=== PATIENT | female | born 1985 | race Caucasian/White ===

== ENCOUNTER → 2020-04-16 15:15 | Outpatient (CLI) | payer OTHER, SELFPAY ==
[2020-04-16 14:32] VITALS: BMI 28.8
[2020-04-16 16:48] LABS: Absolute Lymphocyte Count 2.06 X10^3/uL (0.83-4.51); Absolute Neutrophil Count 5.4 X10^3/uL (2.0-7.7); Basophil# 0.03 X10^3/uL; Basophil% 0.4 % (0-1); Eosinophil# 0.12 X10^3/uL; Eosinophils% 1.5 % (0-5); Lymphocyte # 2.06 X10^3/ul (4.0); Lymphocyte % 24.9 % (19-41); Mean Corp Hgb Conc 32.5 g/dL (32-36); Mean Corpuscular Hgb 29.1 pg (27.0-32.0); Mean Corpuscular Volume 89.7 fL (81-99); Mean Platelet Vol. 11.5 fl (6.2-12.0); Monocyte% 7.3 % (0-10); NRBC Flagged by Analyzer 0 % (0-5); Neutrophil # 5.43 X10^3/uL (2.7-7.7); Neutrophil % 65.5 % (47-70); Platelet Count 241 K/mm3 (150-450); RBC Distribution Width CV 11.8 % (11.6-14.6); RBC Distribution Width SD 38.5 fl (35.1-43.9); Red Blood Count 4.46 M/mm3 (4.2-5.4); White Blood Count 8.3 K/mm3 (4.4-11.0)
[2020-04-16 17:16] LABS: ALB/GLOB Ratio 1.1 RATIO (0.9-2.4); AST(SGOT) 15 U/L (15-37); Alanine Aminotransfer ALT/SGPT 22 U/L (13-56); Albumin, Serum 3.9 g/dL (3.2-5.0); Alkaline Phosphatase 57 U/L (45-117); Anion Gap 4 (5-15); BUN 7 mg/dL (7-18); BUN/Creat Ratio 9.1 RATIO (10-20); Calcium,Total 8.9 mg/dL (8.5-10.1); Chloride 107 mmol/L (98-107); Creatinine, Serum 0.77 mg/dL (0.55-1.02); EST Glomerular Filtration Rate 92 mL/min (>60); Est Glom Filt Rate - Afr Amer 112 mL/min (>60); Globulin 3.7 g/dL (2.2-4.2); Glucose 84 mg/dL (74-106); Potassium 3.6 mmol/L (3.5-5.1); Protein, Total 7.6 g/dL (6.4-8.2); Sodium Level 139 mmol/L (136-145); T4 Free Direct 0.98 ng/dL (0.76-1.46); Thyroid Stim Hormone (TSH) 1.29 uIU/mL (0.358-3.74)
== END ==
PROVIDERS: PCP Internal Medicine; Referring Provider Internal Medicine; Visit Provider Internal Medicine
DX: F32.9 Major depressive disorder, single episode, unspecified (principal); F41.9 Anxiety disorder, unspecified
CPT/HCPCS: 36415; 80053; 84439; 84443; 85025

== ENCOUNTER 2020-07-24 08:00 | Outpatient (RCR) | payer MEDICARE, SELFPAY ==
[2020-05-28 11:05] VITALS: BMI 28.9
== END 2020-08-28 23:59 ==
LOC: IMMUN 08:00
PROVIDERS: PCP Internal Medicine; Referring Provider Family Medicine; Visit Provider Family Medicine
DX: Z23 Encounter for immunization (principal)
CPT/HCPCS: 0001A; 0002A; 91300

== ENCOUNTER 2021-04-21 11:49 | Outpatient (CLI) | payer BC, SELFPAY ==
[2021-04-21 14:54] LABS: Absolute Lymphocyte Count 2.29 X10^3/uL (0.83-4.51); Basophil# 0.05 X10^3/uL; Basophil% 0.7 % (0-1); Eosinophil# 0.11 X10^3/uL; Eosinophils% 1.5 % (0-5); Hematocrit 39.7 % (37-47); Hemoglobin 12.8 g/dL (12.0-15.0); Lymphocyte # 2.29 X10^3/ul (0.83-4.51); Lymphocyte % 32.3 % (19-41); Mean Corp Hgb Conc 32.2 g/dL (32-36); Mean Corpuscular Hgb 28.6 pg (27.0-32.0); Mean Corpuscular Volume 88.8 fL (81-99); Mean Platelet Vol. 11.8 fl (6.2-12.0); Monocyte# 0.58 X10^3/uL; Monocyte% 8.2 % (0-10); NRBC Flagged by Analyzer 0 % (0-5); Neutrophil # 4.04 X10^3/uL (2.7-7.7); Neutrophil % 56.9 % (47-70); Platelet Count 239 K/mm3 (150-450); RBC Distribution Width CV 12.1 % (11.6-14.6); RBC Distribution Width SD 39.3 fl (35.1-43.9); Red Blood Count 4.47 M/mm3 (4.2-5.4); White Blood Count 7.1 K/mm3 (4.4-11.0)
[2021-04-21 15:22] LABS: Vitamin D,25 Hydroxy 18.3 ng/mL
[2021-04-21 15:33] LABS: AST(SGOT) 20 U/L (15-37); Alanine Aminotransfer ALT/SGPT 25 U/L (13-56); Albumin, Serum 3.7 g/dL (3.2-5.0); Alkaline Phosphatase 69 U/L (45-117); Anion Gap 5 (5-15); BUN 9 mg/dL (7-18); BUN/Creat Ratio 11.9 RATIO (10-20); Calcium,Total 8.7 mg/dL (8.5-10.1); Chloride 105 mmol/L (98-107); Creatinine, Serum 0.76 mg/dL (0.55-1.02); EST Glomerular Filtration Rate 93 mL/min (>60); Est Glom Filt Rate - Afr Amer 113 mL/min (>60); Globulin 3.7 g/dL (2.2-4.2); Glucose 92 mg/dL (74-106); Potassium 3.9 mmol/L (3.5-5.1); Protein, Total 7.4 g/dL (6.4-8.2); Sodium Level 137 mmol/L (136-145); Thyroid Stim Hormone (TSH) 1.41 uIU/mL (0.358-3.74)
== END 2021-04-21 23:59 | disposition home or self-care (01) ==
LOC: BIMLAB 11:50
PROVIDERS: PCP Internal Medicine; Referring Provider Physician Assistant; Visit Provider Physician Assistant
DX: F32.9 Major depressive disorder, single episode, unspecified (principal); F41.9 Anxiety disorder, unspecified; Z13.29 Encounter for screening for other suspected endocrine disorder; E55.9 Vitamin D deficiency, unspecified
CPT/HCPCS: 36415; 80053; 82306; 84443; 85025

== ENCOUNTER → 2023-01-13 | Outpatient (CLI) | payer OTHER, SELFPAY ==
[2023-01-13 16:52] LABS: Absolute Lymphocyte Count 2.79 X10^3/uL (0.83-4.51); Absolute Neutrophil Count 4.3 X10^3/uL (2.0-7.7); Basophil# 0.07 X10^3/uL; Basophil% 0.9 % (0-1); Eosinophil# 0.15 X10^3/uL; Eosinophils% 1.9 % (0-5); Hematocrit 41.4 % (37-47); Hemoglobin 13.3 g/dL (12.0-15.0); Lymphocyte # 2.79 X10^3/ul (0.83-4.51); Lymphocyte % 35.1 % (19-41); Mean Corp Hgb Conc 32.1 g/dL (32-36); Mean Corpuscular Volume 90.2 fL (81-99); Mean Platelet Vol. 11.9 fl (6.2-12.0); Monocyte# 0.61 X10^3/uL; Monocyte% 7.7 % (0-10); NRBC Flagged by Analyzer 0 % (0-5); Platelet Count 307 K/mm3 (150-450); RBC Distribution Width CV 12.4 % (11.6-14.6); RBC Distribution Width SD 40.9 fl (35.1-43.9); Red Blood Count 4.59 M/mm3 (4.2-5.4)
[2023-01-13 17:38] LABS: ALB/GLOB Ratio 0.9 RATIO (0.9-2.4); AST(SGOT) 16 U/L (15-37); Alanine Aminotransfer ALT/SGPT 22 U/L (13-56); Albumin, Serum 3.8 g/dL (3.2-5.0); Alkaline Phosphatase 80 U/L (45-117); Anion Gap 6 (5-15); BUN 11 mg/dL (7-18); Calcium,Total 8.8 mg/dL (8.5-10.1); Chloride 105 mmol/L (98-107); Cholesterol 211 mg/dL (200); Creatinine, Serum 0.79 mg/dL (0.55-1.02); EST Glomerular Filtration Rate 88 mL/min (>60); Est Glom Filt Rate - Afr Amer 107 mL/min (>60); Globulin 4.3 g/dL (2.2-4.2); Glucose 88 mg/dL (74-106); High Density Lipoprotein 42 mg/dL; Potassium 3.9 mmol/L (3.5-5.1); Protein, Total 8.1 g/dL (6.4-8.2); Sodium Level 137 mmol/L (136-145); Triglycerides 302 mg/dL; Very Low Density Lipoprotein 60 mg/dL (5-40)
== END | disposition home or self-care (01) ==
LOC: BIMLAB 14:34
PROVIDERS: PCP Internal Medicine; Visit Provider Internal Medicine
DX: Z00.00 Encounter for general adult medical examination without abnormal findings (principal)
CPT/HCPCS: 36415; 80053; 80061; 85025

== ENCOUNTER → 2023-08-04 | Outpatient (CLI) | payer OTHER, SELFPAY ==
--- NOTE | 2023-08-04 17:05 | RAD_ITS ---
INDICATION: pain EXAMINATION/TECHNIQUE: X-RAY - XR Pelvis 1 View COMPARISON: FINDINGS: PELVIC BONES: No displaced fracture, destructive or sclerotic lesions. Note that overlapping bowel shadows may however obscure fine detail. Sacroiliac joints are unremarkable. No widening of the pubic symphysis. HIPS: The articular structures are unremarkable. No displaced fracture seen in this frontal view. SOFT TISSUES: No soft tissue swelling or gas. RAD/Pelvis 1 or 2 Views IMPRESSION: No evidence of displaced pelvic or hip fracture. Electronically Signed: Ciro Skinner DO at 18:12 EDT Reading Location ID and State: [facility] / [place] Tel [phone], Service support ,
== END | disposition home or self-care (01) ==
PROVIDERS: PCP Internal Medicine; Referring Provider Physician Assistant; Visit Provider Physician Assistant
DX: M25.559 Pain in unspecified hip (principal)
CPT/HCPCS: 72170

== ENCOUNTER 2023-08-31 07:54 | Outpatient (RCR) | payer OTHER, SELFPAY ==
--- NOTE | 2023-08-31 14:19 | HP.PTEVAL_ITS ---
Patient's Visit Information Visit Information Visit Information: LUCA RICHARDSON is a 38 year old F referred to Physical Therapy by Dr. Rayshawn Smith MD with a diagnosis of PAIN OF R SI JOINT. Date of Evaluation: 08/31/23 Physical Therapist: Kathleen Beard PT, Cert MDT Visit Plan Frequency: 2-3x /Week Duration: 4-6 Weeks Plan: CORE STRENGTHENING WITH A NEUTRAL SPINE. NURY LE ROM, STRETCHING AND STR ENGTHENING. POSTURE TRAINING, MUSICAL INSTRUMENT MAKER OR REPAIRER TRAINING, AND INSTRUCTION IN APPROPRIATE ACTIVITY MODIFICATIONS TO PROMOTE HEALING AND DECREASED INFLAMMATION. HEP INSTRUCTION. 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 LIKES TO [employer]C [employer]. 3 CHILDREN AGES 6 TO 15. LAST DISC GOLFED END OF MAY 2023. NOT OFF WORK FOR THIS CURRENTLY. Disability: NO Present symptoms: NURY LOW BACK PAIN R>L. PATIENT DENIES NURY LE SX'S. Present since: CHRONIC - STARTED YEARS AGO. FLARED UP MIDDLE OF JULY 2023 (JUST WOKE UP IN MORE PAIN). Pain Scale: WORST 8/10, LEAST 2/10 Currently: 3/10 Is it getting better, worse or staying the same: STAYING THE SAME Commenced as a result of: NO APPARENT REASON Symptoms at onset: MORE ON LEFT THAN R Worse: SITTING, RISING FROM SITTING AND REVERSE, SITTING TO LYING AND REVERSE, LEANING FORWARD IN SITTING, VACCUMING, SWEEPPING, PICKING THINGS UP OFF THE FLOOR, KNEELING, SQUATTING, STANDING WITH ONE FOOT ELEVATED, PROLONGED WALKING LIKE TO GROCERY SHOP, LYING ON EITHER SIDE Better: STANDING, WALKING, LYING RECLINED IN RECLINER, SUPINE LYING. Disturbed sleep: YES - IF MOVES Previous history/Previous treatment: NO BACK SURGERY, INJECTIONS, MASSAGE OR PT. PRESCRIPTION MEDS - NOT HELPFUL. NO PAIN MGMT IN THE PAST. PEDRITO POSE, PIRIFORMIS, DOWNWARD DOG, CAT/COW AND OTHER STRETCHES HAVE HELPED IN THE PAST BUT STOPPED WORKING. Treatment this episode: CHIROPRACTIC X 5 IN THE PAST MONTH - OVER-ALL NO EFFECT. FLEXERIL - HAS TRIED A FEW RECENTLY - NOT HELPING. ALSO TRIED ONE meloxicam - upset stomach - plans to discuss with DR. RÍOS TOMORROW. ONE PAIN MGMT VISIT. ONE CONSULT WITH DR. SMITH. DR. SMITH REFERRED HER TO DR. RÍOS FOR DIAGNOSTIC INJECTIONS WITH INJECTION PENDING TOMORROW (R PIRIFORMIS INJECTION). Coughing/sneezing/straining: NEGATIVE FOR INCREASED PAIN. Gait: NO FALLS. NO AD'S. SOME PAIN ON STEPS. UP IS WORSE. Bowel or Bladder Dysfunction: NO Accidents: NO Unexplained weight loss: NO Imaging: X-RAY RESULTS ALL PER PATIENT REPORT: SPONDYLOLISTHESIS GRADE 1, SCLEROSIS OF R>L SI JTS, SACROILIITIS, ACETABULAR RETROVERSION NURY - INCIDENTAL FINDING. PMH/Recent major surgery: UNREMARKABLE. Objective Objective: Sitting/Standing Posture: ANTERIOR PELVIC TILT. NO RELEVANT LATERAL SHIFT. AVOIDS PARTIAL WT BEARING ON R LE IN STANDING AND WITH TRANSFERS SIT TO STAND AND REVERSE. Other Observations: THIS PATIENT AMBULATES INDEP'LY INTO PT WITHOUT ANY AD'S WITH SLOW ANTALGIC GAIT WITH DECREASED WT BEARING TIME ON R LE AND DECREASED TRUNK ROTATION. GAIT AND TRANSFERS ARE GUARDED. UE DEPENDENT SIT TO STAND. Sensory deficit: NURY LE LIGHT TOUCH SENSATION GROSSLY INTACT AND SYMMETRICAL ROM deficit: TIGHT NURY HS'S, HIP ROTATORS AND GASTROC-SOLEUS COMPLEX'S R>L. Motor deficit: R LE: HIP 4-/5, KNEE 5/5, ANKLE 5/5. L HIP 4/5, KNEE 5/5, ANKLE 5/5. Reflexes: NURY QUADS 2+, NURY ACHILLES 1+ Dural Signs: POSITIVE R LE Lumbar mvmt loss: flex - MOD - INCREASES NURY LB R>L - NW ext - MIN - NE R SG - MIN - INCREASES R LB - NW L SG - MIN - INCREASES LB - NW Core strength: POOR Palpation: LOWER LUMBAR, SACRAL AND SI JT REGION TENDERNESS R>L. Balance/Special Test Scores Oswestry Low Back Score: 19 Goals Goal 1:: DECREASE C/O BACK PAIN BY AT LEAST 50% TO EASE WORK AND ADL FUNCTION Goal Time Frame: 4-6 Weeks Goal 2:: PATIENT WILL COMPLETE 10 STANDS IN 30 SECS WITHOUT UE ASSIST AND WITHOUT C/O TO DEMONSTRATE IMPROVED FUNCTIONAL STRENGTH Goal Time Frame: 4-6 Weeks Goal 3:: PATIENT WILL COMPLETE TUG IN < 10 SECS WITH NORMALIZED GAIT TO DEMONSTRATE IMPROVED GAIT STABILITY Goal 4:: Patient will be able to stand and walk for 30 minutes without increased symptoms/needing to sit down for increased ADL/recreational tolerance. Goal Time Frame: 4-6 Weeks Goal 5:: PATIENT WILL BE INDEP WITH A HEP FOR CONTINUED IMPROVEMENT ONCE FORMAL PHYSICAL THERAPY CONCLUDES. Goal Time Frame: 4-6 Weeks Rehabilitation Potential Physical Therapy Diagnosis: THIS PATIENT PRESENTS TO PT WITH C/O BACK PAIN R>L. SHE DEMO'S GAIT AND TRANSFER DIFFICULTY, BACK AND LE STIFFNESS AND WEAKNESS. Rehabilitation Potential: Fair Anticipated Interventions Patient/Client Instruction: Educate patient on: Condition, Plan of Care and Risk Factors For the Purpose of:: To improve self management Therapeutic Exercise to Include: Strength training, Body mechanics, Postural training, Flexibilty training, Neuromotor development and Dynamic Lumbar Stabilization For the Purpose of:: To decrease pain, To improve muscle performance and motor function, To increase tolerance to activity/condition/position, To improve ability of physical actions for home/community/work/leisure, To improve gait and locomotor functions and To increase flexibility/ROM Cryotherapy (ice pack, ice massage): Yes Thermo therapy (hot pack): Yes Ultrasound (thermal/non thermal): Yes For the Purpose of:: To decrease pain and To improve nutrient delivery to tissue Text: Thank you for the opportunity to evaluate your patient. For Medicare and Medicare HMO plans, please review the plan of care and approve it. It will need to be FAXED BACK to us at [phone] for Medicare purposes. For Medicare only, by signing this I certify the plan of care. Please let me know if there are questions or concerns regarding this plan of care. Physician Signature: Date:
== END 2023-08-31 19:00 | disposition home or self-care (01) ==
LOC: PT 07:54
PROVIDERS: PCP Internal Medicine; Referring Provider Orthopaedic Surgery Orthopaedic Surgery of the Spine; Visit Provider Orthopaedic Surgery Orthopaedic Surgery of the Spine
DX: M53.3 Sacrococcygeal disorders, not elsewhere classified (principal)
CPT/HCPCS: 97162

== ENCOUNTER → 2024-01-28 | Outpatient (CLI) | payer OTHER, SELFPAY ==
[2024-01-28 12:28] LABS: ALB/GLOB Ratio 0.9 RATIO (0.9-2.4); AST(SGOT) 21 U/L (15-37); Alanine Aminotransfer ALT/SGPT 37 U/L (13-56); Albumin, Serum 3.7 g/dL (3.2-5.0); Alkaline Phosphatase 80 U/L (45-117); Anion Gap 5 (5-15); BUN 9 mg/dL (7-18); BUN/Creat Ratio 8.8 RATIO (10-20); Chloride 106 mmol/L (98-107); Cholesterol 218 mg/dL (200); Creatinine, Serum 1.02 mg/dL (0.55-1.02); EST Glomerular Filtration Rate 65 mL/min (>60); Est Glom Filt Rate - Afr Amer 79 mL/min (>60); Glucose 126 mg/dL (74-106); High Density Lipoprotein 40 mg/dL; Potassium 4.1 mmol/L (3.5-5.1); Protein, Total 7.7 g/dL (6.4-8.2); Sodium Level 138 mmol/L (136-145); Triglycerides 178 mg/dL; Very Low Density Lipoprotein 36 mg/dL (5-40)
[2024-01-28 12:36] LABS: Absolute Lymphocyte Count 2.47 X10^3/uL (0.83-4.51); Basophil# 0.05 X10^3/uL; Basophil% 0.6 % (0-1); Eosinophil# 0.19 X10^3/uL; Eosinophils% 2.3 % (0-5); Hematocrit 44.6 % (37-47); Hemoglobin 14.5 g/dL (12.0-15.0); Lymphocyte # 2.47 X10^3/ul (0.83-4.51); Lymphocyte % 29.9 % (19-41); Mean Corp Hgb Conc 32.5 g/dL (32-36); Mean Corpuscular Hgb 29.3 pg (27.0-32.0); Mean Corpuscular Volume 90.1 fL (81-99); Mean Platelet Vol. 11.5 fl (6.2-12.0); Monocyte# 0.55 X10^3/uL; Monocyte% 6.7 % (0-10); NRBC Flagged by Analyzer 0 % (0-5); Neutrophil # 4.96 X10^3/uL (2.7-7.7); Neutrophil % 60.1 % (47-70); Platelet Count 350 K/mm3 (150-450); RBC Distribution Width CV 12.2 % (11.6-14.6); RBC Distribution Width SD 39.8 fl (35.1-43.9); Red Blood Count 4.95 M/mm3 (4.2-5.4); White Blood Count 8.3 K/mm3 (4.4-11.0)
[2024-01-28 13:51] LABS: Vitamin D,25 Hydroxy 14.4 ng/mL
[2024-01-28 13:56] LABS: T4 Free Direct 1.04 ng/dL (0.76-1.46)
== END | disposition home or self-care (01) ==
LOC: BIMLAB 09:53
PROVIDERS: PCP Internal Medicine; Referring Provider Internal Medicine; Visit Provider Internal Medicine
DX: Z00.00 Encounter for general adult medical examination without abnormal findings (principal); Z13.29 Encounter for screening for other suspected endocrine disorder; E55.9 Vitamin D deficiency, unspecified
CPT/HCPCS: 36415; 80053; 80061; 82306; 84439; 84443; 85025

== ENCOUNTER 2024-11-04 20:12 | Emergency (ER) | payer BC, SELFPAY ==
[2024-11-04 20:14] VITALS: BP 122/83; PULSE 123; RESP 18; TEMP 37.1; O2SAT 97; BMI 49.6
--- NOTE | 2024-11-04 20:16 | RAD_ITS ---
PROCEDURE: CLAVICLE 11/04/2024 REASON FOR EXAM: FALL Initial encounter TECHNIQUE: CLAVICLE COMPARISON: Right shoulder today FINDINGS: RIGHT CLAVICLE: Bones right: No clavicle fracture. Joints right: AC joint and sternoclavicular joints appear intact Soft tissues right: Unremarkable Incomplete, nondisplaced, vertical fracture involving the right humeral head and neck. RAD/Clavicle IMPRESSION: Intact clavicle. Nondisplaced vertical fracture through the right humeral head and neck Reading [facility]
--- NOTE | 2024-11-04 20:40 | RAD_ITS ---
PROCEDURE: SHOULDER MIN 2 VIEWS 11/04/2024 REASON FOR EXAM: FALL Trauma fall walking dog including fall than pain near AC joint. TECHNIQUE: SHOULDER MIN 2 VIEWS Laterality: Right COMPARISON: Right clavicle today FINDINGS: Bones: Nondisplaced, vertical fracture seen involving the right humeral head and neck Joints: Gleno humeral joint is intact. No dislocation. Soft tissues: Unremarkable Other: RAD/Shoulder min 2 Views IMPRESSION: Nondisplaced vertical fracture involving the right humeral head and neck Reading [facility]
--- OUTSIDE RECORDS SUMMARY | 2024-11-04 21:21 | XMS RPT_ITS | CCD ---
Author Organization [facility] Care Team Providers Care Relief Pilot Name Role Phone LAI, CAMRYN Unavailable Unavailable LAI, CAMRYN Unavailable Unavailable LAI, CAMRYN Unavailable Unavailable PHYSICIAN, NONE Unavailable Unavailable LAI, CAMRYN Unavailable Unavailable PHYSICIAN, NONE Unavailable Unavailable LAI, ACMRYN Unavailable Unavailable PHYSICIAN, NONE Unavailable Unavailable LAI, CAMRYN Unavailable Unavailable PHYSICIAN, NONE Unavailable Unavailable LAI, CAMRYN Unavailable Unavailable PHYSICIAN, NONE Unavailable Unavailable LAI, CAMRYN Unavailable Unavailable PHYSICIAN, NONE Unavailable Unavailable LAI, CAMRYN Unavailable Unavailable PHYSICIAN, NONE Unavailable Unavailable PHYSICIAN, NONE Unavailable Unavailable LAI, CAMRYN Unavailable Unavailable PHYSICIAN, NONE Unavailable Unavailable LAI, CAMRYN Unavailable Unavailable LAI, CAMRYN Unavailable Unavailable LAI, CAMRYN Unavailable Unavailable LAI, CAMRYN Unavailable Unavailable PHYSICIAN, NONE Unavailable Unavailable Kaley Navarro DO Primary Care Provider Prince Garcia MD Primary Care Provider [phone] Dr. Prince Garcia Primary Care Provider [phone] Dr. Prince Garcia Attending Provider [phone] Dr. Prince Garcia Referring Provider [phone] Prince Garcia MD Primary Care Provider [phone] Prince Garcia Primary Care Unavailable Jet Tucker Attending Unavailable Rayshawn Smith Attending Unavailable Radha, Efdialloongbe Primary Care Unavailable Rayshawn Smith Referring Unavailable Km Olvera Referring Unavailable Km Olvera Attending Unavailable Radha, Efdialloongbe Primary Care Unavailable Radha, Efewongbe Primary Care Unavailable Radha Efewongbe Referring Unavailable Meka Garciabe Attending Unavailable Rayshawn Smith Attending Unavailable Oleghe, Efewongbe Primary Care Unavailable Oleghe, Efewongbe Referring Unavailable Oleghe, Efewongbe Referring Unavailable Oleghe, Efewongbe Primary Care Unavailable Km Olvera Attending Unavailable Oleghe, Efewongbe Primary Care Unavailable Oleghe, Efewongbe Referring Unavailable Oleghe, Efewongbe Attending Unavailable OLEGHE, EFEWONGBE B Primary Care Unavailable OLEGHE, EFEWONGBE B Primary Care Unavailable Allergies Allergy Classification Reported Allergen(s) Allergy Type Date of Onset Reaction(s) Facility (5 sources) Acetaminophen / HYDROcodone; Translations: [HYDROCODONE-ACET AMINOPHEN] Drug Allergy 6 GI Upset [facility] (6 sources) almond allergenic extract; Translations: [ALMOND] Drug Allergy 5 Swelling [facility] (6 sources) paprika allergenic extract; Translations: [PAPRIKA] Drug Allergy 2 [facility] (5 sources) Seasonal allergy; Translations: [SEASONAL ALLERGIES] Allergy to substance 8 Unknown [facility] Work Phone: (7 sources) Shellfish; Translations: [shellfish derived] Drug Allergy 2 [facility] (5 sources) tree nut, unspecified; Translations: [TREE NUTS] Drug Allergy 8 Swelling [facility] Work Phone: (5 sources) Macadamia Nut Oil; Translations: [MACADAMIA NUT OIL] Drug Allergy 6 Swelling [facility] Work Phone: (5 sources) Nut - Unspecified; Translations: [NUT - UNSPECIFIED] Drug Allergy 5 Itching [facility] Work Phone: (1 source) almond allergenic extract Drug Allergy 4 [facility] Repository (1 source) paprika allergenic extract Drug Allergy 4 [facility] (1 source) Codeine Drug Allergy 5 Mental Status Change [facility] Medications Current Medications Medication Drug Class(es) Dates Sig (Normalized) Sig (Original) acetaminophen 500 mg oral tablet (6 sources) Start: 04-07-2014 End: 01-13-2023 take 500-1000 mg by mouth once daily Acetaminophen Active 500 - 1000 MG PO DAILY January 13, 2023 1:01pm take 2 tablets by mo [facility] every six hours as needed acetaminophen (TYLENOL) 325 mg tablet Ta ke 650 mg by mouth every 6 hours as needed. Active Comment on above: Take 650 mg by mouth every 6 hours as needed. [id number] 200 actuat albuterol 0.09 mg/actuat metered dose inhaler (2 sources) beta2-Adrenergic Agonist Start: 10-17-19 take 2 puff(s) by inhalation every six hours as needed for wheezing albuterol HFA (PROVENTIL HFA, VENTOLIN HFA) 90 mcg/actuation inhaler Inhale 2 Puffs as instructed every 6 hours as needed for wheezing/shortness of breath. 8 g 10/17/2023 Active amoxicillin 875 mg / clavulanate 125 mg oral tablet (2 sources) Penicillin-class Antibacterial Start: 06-07-19 End: 06-17-19 take 1 tablet by mouth twice daily amoxicillin-clavulan ate potassium (AUGMENTIN) 875-125 mg per tablet Indications: Acute non-recurrent streptococcal tonsillitis Take 1 tablet by mouth two times a day for 10 days. 20 tablet 06/06/2024 06/16/2024 Active Start: 12-22-2022 End: 12-29-2022 take 1 tablet by mouth twice daily amoxicillin-clavulanic acid (AUGMENTIN) 875-125 mg per tablet Take 1 tablet by mouth two times a day for 7 days. 14 tablet 0 12/22/2022 12/29/2022 Active Comment on above: Take 1 tablet by alethea two times a day for 7 days. busPIRone hydrochloride 15 mg oral tablet (9 sources) Start: 04-21-2021 End: 01-13-2023 take 1 tablet by mouth twice daily busPIRone (BUSPAR) 15 mg tablet Take 15 mg by mouth twice daily. 07/15/2021 Active Start: 05-28-2020 End: 04-21-2021 take 10 mg by mouth twice daily Buspirone Discontinued 10 MG PO TWICE A DAY 180 90 April 08, 2021 10:07am April 21, 2021 11:38am Start: 04-16-2020 End: 05-28-2020 take 5 mg by mouth twice daily Buspirone Discontinued 5 MG PO TWICE A DAY 60 April 16, 2020 12:00am May 28, 2020 10:28am Comment on above: Take 15 mg by mouth twice daily. doxycycline hyclate 100 mg oral tablet (2 sources) Tetracycline-cla ss Drug Start: 10-17-2023 End: 10-22-2023 take 1 tablet by mouth twice daily doxycycline (VIBRA-TABS) 100 mg tablet Take 1 tablet by mouth two times a day for 5 days. 10 tablet 0 10/17/2023 10/22/2023 Active Start: 05-28-2020 End: 04-21-2021 take 100 mg by mouth twice daily Doxycycline Hyclate Discontinued 100 MG PO TWICE A DAY May 27, 2020 11:00pm April 21, 2021 11:16am Hold Ferrous Sulfate while n Doxycycline Ethinyl Estradiol / Ferrous fumarate / Norethindrone (4 sources) Estrogen Start: 10-31-2018 take 1 tablet by mouth once daily , 1 mg-20 mcg (21)/75 mg (7) per tablet TAKE 1 TABLET BY MOUTH EVERY DAY 84 tablet 10/31/2018 Active Start: 10-31-2018 take 1 tablet by alethea once daily , 1 mg-20 mcg (21)/75 mg (7) per tablet TAKE 1 TABLET BY MOUTH EVERY DAY 84 tablet 0 10/31/2018 Active Comment on above: TAKE 1 TABLET BY ALETHEA TH EVERY DAY fluconazole 150 mg oral tablet (5 sources) Azole Antifungal Start: 07-10-19 End: 10-18-19 take 1 tablet by mouth once fluconazole (DIFLUCAN) 150 mg tablet TAKE 1 TABLET BY MOUTH ONCE 0 07/09/2018 Active Comment on above: TAKE 1 TABLET BY ALETHEA ONCE fluticasone propionate 0.05 mg/actuat metered dose nasal spray (1 source) Corticosteroid Start: 04-21-19 take 2 spray(s) nasal route every week Fluticasone Propionate Active 1 SPRAY INTRANASAL TWICE A DAY April 21, 2021 12:00am administer into each nostril; 2 sprays in each nostril for the first week ibuprofen 400 mg oral tablet (1 source) Nonsteroidal Anti-inflammatory Drug Start: 01-14-20 take 400 mg by mouth every eight hours Ibuprofen Active 400 MG PO Q8H January 12, 2023 11:00pm Inhalational Spacing Device (1 source) Start: 10-17-19 End: 10-17-19 Inhalational Spacing Device 1 Device one time only for 1 dose. 1 Each 0 10/17/2023 10/17/2023 Active ofloxacin 3 mg/ml otic solution (1 source) Quinolone Antimicrobial Start: 12-23-19 End: 12-30-19 ofloxacin (FLOXIN) 0.3 % otic solution Use 10 Drops in the right ear once daily for 7 days. 4 mL 0 12/22/2022 12/29/2022 Active Comment on above: Use 10 Drops in the right ear once daily for 7 days. predniSONE 20 mg oral tablet (3 sources) Start: 06-07-19 End: 06-10-19 take 1 tablet by mouth twice daily predniSONE (DELTASONE) 20 mg tablet Indications: Acute non-recurrent streptococcal tonsillitis Take 1 tablet by mouth two times a day for 3 days. 6 tablet 06/06/2024 06/09/2024 Active Start: 10-17-2023 End: 10-22-2023 take 4 tablets by mouth once daily predniSONE (DELTASONE) 10 mg tablet Take 4 tablets by mouth once daily for 5 days. 20 tablet 0 10/17/2023 10/22/2023 Active Start: 08-06-2021 End: 08-15-2021 predniSONE (DELTASONE) 10 mg tablet Indications: Sore throat Take 4 tabs daily for 3 days, then 2 tabs daily for 3 days, then 1 tab daily for 3 days with food. 21 tablet 0 08/06/2021 08/15/2021 Active Comment on above: Take 4 tabs daily fo r 3 days, then 2 tabs daily for 3 days, then 1 tab daily for 3 days with food. traZODone hydrochloride 100 mg oral tablet (8 sources) Serotonin Reuptake Inhibitor Start: 04-16-2020 End: 01-13-2023 take 1 tablet by mouth once daily traZODone (DESYREL) 100 mg tablet Take 100 mg by mouth once daily. 07/10/2021 Active Comment on above: Take 100 mg by mouth once daily. Completed/Discontinued Medications Medication Drug Class(es) Dates Sig (Normalized) Sig (Original) baclofen 10 mg oral tablet (1 source) gamma-Aminobutyr ic Acid-ergic Agonist Start: 04-16-2020 End: 04-21-2021 take 10 mg by mouth at bedtime Baclofen Discontinued 10 MG PO AT BEDTIME 60 April 16, 2020 12:00am April 21, 2021 11:17am etonogestrel 68 mg drug implant (5 sources) Progestin Start: 04-16-2020 End: 01-13-2023 Etonogestrel (Nexplanon) 68 mg implant Discontinued 1 IMPLANT subdermal ONCE April 16, 2020 12:00am January 13, 2023 1:02pm as a single dose Start: 06-29-2018 etonogestrel ( NEXPLANON) subdermal implant 68 mg 68 mg by SUBDERMAL route. Placed 06/29/18 06/29/2018 Active Comment on above: 68 mg by SUBDERMAL r oute. Placed 06/29/18 famotidine 20 mg oral tablet (1 source) Histamine-2 Receptor Antagonist Start: 1 End: 1 take 20 mg by mouth once daily Famotidine Discontinued 20 MG PO DAILY April 16, 2020 12:00am April 16, 2020 3:06pm ferrous sulfate 325 mg oral tablet (1 source) Start: 5 End: 2 Ferrous Sulfate (Iron Supplement) 325 MG tablet Discontinued 65 MG PO DAILY April 07, 2014 12:00am April 21, 2021 11:18am naproxen 250 mg oral tablet (1 source) Nonsteroidal Anti-inflammatory Drug Start: 5 End: 2 take 250-500 mg by mouth every eight hours as needed Naproxen Discontinued 250 - 500 MG PO EVERY 8 HOURS NEEDED April 09, 2014 12:00am April 21, 2021 11:18am omeprazole 40 mg delayed release oral capsule (3 sources) Proton Pump Inhibitor Start: 1 End: 3 take 40 mg by mouth once daily Omeprazole Discontinued 40 MG PO DAILY April 21, 2021 11:25am January 13, 2023 1:02pm Start: 04-16-2020 End: 05-28-2020 take 40 mg by mouth twice daily Omeprazole Discontinued 40 MG PO TWICE A DAY 180 April 16, 2020 12:00am May 28, 2020 10:11am Problems Active Problems Problem Classification Problem Date Documented Date Episodic/Chronic Anxiety disorders (6 sources) Anxiety; Translations: [Anxiety disorder, unspecified] Onset: 06-09-2018 06-09-2018 Chronic Esophageal disorders (1 source) Gastroesophageal reflux disease; Translations: [Gastro-esophageal reflux disease without esophagitis] 04-26-2020 Chronic Menstrual disorders (4 sources) Menometrorrhagia; Translations: [Excessive and frequent menstruation with irregular cycle] Onset: 06-09-2018 06-09-2018 Chronic Other complications of (1 source) Anemia during - baby not yet delivered; Translations: [Anemia complicating , unspecified trimester] Onset: 01-12-2014 01-12-2014 Chronic Other complications of (3 sources) Anemia of ; Translations: [Anemia complicating , unspecified trimester] Onset: 01-12-2014 01-12-2014 Chronic Other ear and sense organ disorders (1 source) Acute otitis externa of right ear; Translations: [Unspecified acute noninfective otitis externa, right ear] 12-22-2022 Episodic Other infections; including parasitic (1 source) Personal history of other infectious and parasitic diseases; Translations: [History of COVID-19] 04-22-2021 Episodic Other upper respiratory infections (1 source) Bacterial sinusitis; Translations: [Chronic sinusitis, unspecified] 10-17-2023 Chronic Other upper respiratory infections (3 sources) Sore throat symptom; Translations: [Acute pharyngitis, unspecified] Episodic Otitis media and related conditions (1 source) Acute right otitis media; Translations: [Otitis media, unspecified, right ear] 12-22-2022 Episodic Unclassified (1 source) Unknown / UNK(Unknown) Onset: 09-24-2016 Unclassified (1 source) Low back pain, unspecified; Translations: [Low back pain, unspecified] Onset: 08-19-2023 Past or Other Problems Problem Classification Problem Date Documented Da te Episodic/Chronic Early or threatened labor (4 sources) labor without delivery, unspecified trimester; Translations: [ labor without delivery] Onset: 01-01-2017 Resolved: 06-13-2018 06-13-2018 Episodic Heart valve disorders (4 sources) Heart murmur; Translations: [Cardiac murmur, unspecified] Onset: 08-15-2013 03-10-2021 Episodic Normal and/or delivery (4 sources) Encounter for supervision of other normal , third trimester; Translations: [Normal ] Onset: 12-20-2013 Resolved: 06-13-2018 03-10-2021 Episodic Other complications of (4 sources) Rubella non-immune; Translations: [Supervision of other high risk pregnancies, unspecified trimester] Onset: 2013 2013 Episodic Other lower respiratory disease (2 sources) H/O: asthma; Translations: [Personal history of other diseases of the respiratory system] Onset: 08-15-2013 Resolved: 01-11-2014 03-10-2021 Episodic Other non-traumatic joint disorders (1 source) Pain in unspecified hip; Translations: [Pain in unspecified hip] Onset: 08-13-2023 Episodic Residual codes; unclassified (2 sources) FH: Congenital anomaly; Translations: [Family history of other congenital malformations, deformations and chromosomal abnormalities] Onset: 08-15-2013 Resolved: 01-11-2014 03-10-2021 Episodic Screening and history of mental health and substance abuse codes (4 sources) H/O: depression; Translations: [Personal history of other mental and behavioral disorders] Onset: 08-15-2013 03-10-2021 Episodic Spondylosis; intervertebral disc disorders; other back problems (5 sources) Low back pain; Translations: [Lower back pain] Onset: 08-15-2013 03-10-2021 Episodic Unclassified (1 source) DATING AND ANATOMY Onset: 09-24-2016 Unclassified (1 source) history of child 10-12-2021 Unclassified (1 source) ulcers 10-12-2021 Results Test Name Value Interpretation Reference Range Facility [facility] 06-06-2024 CNOV Office Visit ([facility] ) ROSY RICHARDSON ([id number]) 1985 F Date Time Provider Department 06/06/24 4:45 PM BLANCA BOUCHER [facility] During your visit today, we recorded the following information about you: Temperature Pulse Respiration Blood pressure 100.1 degrees 111/minute 16/minute 118/70 Weight Last Period 93 kg 05/15/24 Blanca Boucher PA-C 06/06/2024 4:43 PM Signed This note was created using Mir[employer]. Subjective Rosy Richardson is a 38 year old female. Patient is a 38-year-old female who complains of fever, chills and worsening sore throat that she has been experiencing for the past 2 days. Patient reports no congestion, sinus pressure, ear pain, cough or other illness symptoms. Patient states that she spent the day with her friend's children over the weekend and the following day they all tested positive for group A Streptococcus. Sore Throat Review of Systems Constitutional: Positive for chills and fever. HENT: Positive for sore throat. All other systems reviewed and are negative. Objective BP 118/70 Pulse 111 Temp 37.8 ?C (100.1 ?F) Resp 16 Wt 93 kg (205 lb 0.4 oz) LMP 05/15/2024 (Exact Date) SpO2 98% BMI 34.38 kg/m? Physical Exam Vitals and nursing note reviewed. Constitutional: Appearance: Normal appearance. She is normal weight. HENT: Head: Normocephalic and atraumatic. Right Ear: External ear normal. Left Ear: External ear normal. Nose: Nose normal. Mouth/Throat: Mouth: Mucous membranes are moist. Pharynx: Oropharyngeal exudate and posterior oropharyngeal erythema present. Eyes: Extraocular Movements: Extraocular movements intact. Conjunctiva/sclera: Conjunctivae normal. Pupils: Pupils are equal, round, and reactive to light. Cardiovascular: Rate and Rhythm: Normal rate and regular rhythm. Pulses: Normal pulses. Heart sounds: Normal heart sounds. Pulmonary: Effort: Pulmonary effort is normal. Breath sounds: Normal breath sounds. Musculoskeletal: Cervical back: Normal range of motion and neck supple. Skin: General: Skin is warm and dry. Capillary Refill: Capillary refill takes less than 2 seconds. Neurological: General: No focal deficit present. Mental Status: She is alert and oriented to person, place, and time. Psychiatric: Mood and Affect: Mood normal. Behavior: Behavior normal. Thought Content: Thought content normal. Judgment: Judgment normal. Assessment and Plan Physical exam findings as noted above. Rapid strep test is positive. Patient was provided with prescriptions for Augmentin 875-125 mg and prednisone 20 mg. Supportive care instructions were discussed and patient verbalizes excellent understanding of same. CLINICAL IMPRESSION: Acute Streptococcal Tonsillitis ASSESSMENT/PLAN: 1. Sore throat - ICD9: 462, ICD10: J02.9 (primary diagnosis) - STREP A MOLECULAR (POC) 2. Acute non-recurrent streptococcal tonsillitis - ICD9: 034.0, ICD10: J03.00 - AMOXICILLIN 875 MG-POTASSIUM CLAVULANATE 125 MG TABLET - PREDNISONE 20 MG TABLET MDM Amount and/or Complexity of Data Reviewed Clinical lab tests: ordered and reviewed Risk of Complications, Morbidity, and/or Mortality Presenting problems: low Diagnostic procedures: low Management options: brodie Boucher PA-C Allergies As of Date: 06/06/2024 Noted Allergy Reaction ALMOND 03/21/2014 7 - Swelling CODEINE 06/06/2024 1 - Mental Status Change Comments: Increased nightmares HYDROCODONE-ACETAMINO PHEN 04/16/2015 8 - GI Upset MACADAMIA NUT OIL 04/16/2015 7 - Swelling NUT - UNSPECIFIED 05/18/2014 9 - Itching Comments: Lips burn and itch- raw nuts PAPRIKA 08/06/2021 4 - Hives Comments: Throat and tongue swell SEASONAL ALLERGIES 02/22/2018 16 - Unknown SHELLFISH DERIVED 08/06/2021 4 - Hives Comments: Tongue and lips swell TREE NUTS 02/22/2018 7 - Swelling Date Reviewed: 06/06/2024 Reviewed by: Silvia Law MA - Fully Assessed Reason for Visit: Sore Throat [200] Primary Visit Diagnosis:Sore throat [J02.9] Other Visit Diagnosis:Acute non-recurrent streptococcal tonsillitis [J03.00] Order(s):STREP A MOLECULAR (POC) [1243420] Order #: [id number]. #:[id number] amoxicillin-clavulana te potassium (AUGMENTIN) 875-125 mg per tabletTake 1 tablet by mouth two times a day for 10 days.Disp: 20 tabletRfl: 0 predniSONE (DELTASONE) 20 mg tabletTake 1 tablet by mouth two times a day for 3 days.Disp: 6 tabletRfl: 0 Prescriptions as of 06/06/2024 - amoxicillin-clavulana te potassium (AUGMENTIN) 875-125 mg per tablet Take 1 tablet by mouth two times a day for 10 days. - predniSONE (DELTASONE) 20 mg tablet Take 1 tablet by mouth two times a day for 3 days. - albuterol HFA (PROVENTIL HFA, VENTOLIN HFA) 90 mcg/actuation inhaler Inhale 2 Puffs as instructed every 6 hours as needed for wheezing/shortness of breath. - traZODone ( (more content not included)... Normal [facility] STREP A MOLECULAR (POC)on Interpretation and review of laboratory results Abnormal [facility] Procedural Control Valid [facility] Strep A (POCT) Positive Abnormal Negative [facility] CBC W/Diff, Automatedon 11-1 Absolute Lymph 2.47 X10 3/uL Normal 0.83-4.51 [facility] Comment on above: Performed By: #### L 500.4100, [id number], L100.0100 #### [facility] [address] [place], [address] Absolute Neut 5.0 X10 3/uL Normal 2.0-7.7 [facility] Comment on above: Performed By: #### L 500.4100, [id number], L100.0100 #### [facility] [address] [place], [address] Basophils/100 WBC (Bld) 0.6 % Normal 0-1 [facility] Comment on above: Performed By: #### L 500.4100, [id number], L100.0100 #### [facility] [address] [place], [address] Eosinophils/100 WBC (Bld) 2.3 % Normal 0-5 [facility] Comment on above: Performed By: #### L 500.4100, [id number], L100.0100 #### [facility] [address] [place], [address] Erythrocyte distribution width (RBC) [Ratio] 12.2 % Normal 11.6-14.6 [facility] Comment on above: Performed By: #### L 500.4100, [id number], L100.0100 #### [facility] [address] [place], [address] Hematocrit (Bld) [Volume fraction] 44.6 % Normal 37-47 [facility] Comment on above: Performed By: #### L 500.4100, [id number], L100.0100 #### [facility] [address] [place], [address] Hemoglobin (Bld) [Mass/Vol] 14.5 g/dL Normal 12.0-15.0 [facility] Comment on above: Performed By: #### L 500.4100, [id number], L100.0100 #### [facility] [address] [place], [address] IG% 0.400 Normal 0.0-0.9 [facility] Comment on above: Result Comment: IG% - Immature Granulocytes (promyelocytes, myelocytes and metamyelocytes) > 1% indicates that a LEFT SHIFT is Present. Performed By: #### L 500.4100, [id number], L100.0100 #### [facility] [address] [place], [address] Lymphocytes/100 WBC (Bld) 29.9 % Normal 19-41 [facility] Comment on above: Performed By: #### L 500.4100, [id number], L100.0100 #### [facility] [address] [place], [address] MCH (RBC) [Entitic mass] 29.3 pg Normal 27.0-32.0 [facility] Comment on above: Performed By: #### L 500.4100, [id number], L100.0100 #### [facility] [address] [place], [address] MCHC (RBC) [Mass/Vol] 32.5 g/dL Normal 32-36 [facility] Comment on above: Performed By: #### L 500.4100, [id number], L100.0100 #### [facility] [address] [place], [address] MCV (RBC) [Entitic vol] 90.1 fL Normal 81-99 [facility] Comment on above: Performed By: #### L 500.4100, [id number], L100.0100 #### [facility] [address] [place], [address] Monocytes/100 WBC (Bld) 6.7 % Normal 0-10 [facility] Comment on above: Performed By: #### L 500.4100, [id number], L100.0100 #### [facility] [address] [place], [address] Neutrophils/100 WBC (Bld) 60.1 % Normal 47-70 [facility] Comment on above: Performed By: #### L 500.4100, [id number], L100.0100 #### [facility] [address] [place], [address] Nucleated RBC (Bld) [#/Vol] 0 10*3/uL Normal 0-5 [facility] Comment on above: Performed By: #### L 500.4100, [id number], L100.0100 #### [facility] [address] [place], [address] Platelet mean volume (Bld) [Entitic vol] 11.5 fL Normal 6.2-12.0 [facility] Comment on above: Performed By: #### L 500.4100, [id number], L100.0100 #### [facility] [address] [place], [address] Platelets (Bld) [#/Vol] 350 10*3/uL Normal 150-450 [facility] Comment on above: Performed By: #### L 500.4100, [id number], L100.0100 #### [facility] [address] [place], [address] RBC (Bld) [#/Vol] 4.95 10*6/uL Normal 4.2-5.4 [facility] Comment on above: Performed By: #### L 500.4100, [id number], L100.0100 #### [facility] [address] [place], [address] RDW SD 39.8 fl Normal 35.1-43.9 [facility] [facility] Comment on above: Performed By: #### L 500.4100, L500.4050, L100.0100 #### [facility] [address] [place], [address] WBC (Bld) [#/Vol] 8.3 10*3/uL Normal 4.4-11.[address] [facility] Comment on above: Performed By: #### L 500.4100, L500.4050, L100.0100 #### [facility] [address] [place], [address] Comprehensive Metabolic Prof ilon 01-28-2024 Albumin [Mass/Vol] 3.7 g/dL Normal 3.2-5.[address] [facility] Comment on above: Performed By: #### L 500.4100, L500.4050, L100.0100 #### [facility] [address] [place], [address] Albumin/Globulin [Mass ratio] 0.9 {ratio} Normal 0.9-2.4 [facility] Comment on above: Performed By: #### L 500.4100, L500.4050, L100.0100 #### [facility] [address] [place], [address] ALK P 80 U/L Normal 45-117 [facility] Comment on above: Performed By: #### L 500.4100, L500.4050, L100.0100 #### [facility] [address] [place], [address] ALT [Catalytic activity/Vol] 37 U/L Normal 13-56 [facility] Comment on above: Performed By: #### L 500.4100, L500.4050, L100.0100 #### [facility] [address] [place], [address] AST [Catalytic activity/Vol] 21 U/L Normal 15-37 [facility] Comment on above: Performed By: #### L 500.4100, L500.4050, L100.0100 #### [facility] [address] [place], [address] Bilirubin [Mass/Vol] 0.50 mg/dL Normal 0.20-1.00 [facility] Comment on above: Result Comment: For patients on eltrombopag therapy, use of Dimension [place] TBIL is not recommended. Performed By: #### L 500.4100, L500.4050, L100.0100 #### [facility] [address] [place], [address] BUN/CRE 8.8 RATIO Low 10-20 [facility] Comment on above: Performed By: #### L 500.4100, L500.4050, L100.0100 #### [facility] [address] [place], [address] CA,Total 9.0 mg/dL Normal 8.5-10.1 [facility] Comment on above: Performed By: #### L 500.4100, L500.4050, L100.0100 #### [facility] [address] [place], [address] Chloride [Moles/Vol] 106 mmol/L Normal 98-107 [facility] Comment on above: Performed By: #### L 500.4100, L500.4050, L100.0100 #### [facility] [address] [place], [address] CO2 [Moles/Vol] 27.0 mmol/L Normal 21.0-32.0 [facility] Comment on above: Performed By: #### L 500.4100, L500.4050, L100.0100 #### [facility] [address] [place], [address] Creatinine [Mass/Vol] 1.02 mg/dL Normal 0.55-1.02 [facility] Comment on above: Result Comment: The validity of the calculated GFR GFRAA in patients over 70 years has not been determined. Clinical correlation is essential. Performed By: #### L 500.4100, L500.4050, L100.0100 #### [facility] [address] [place], [address] EST GFR - AA 79 mL/min Normal >60 [facility] Comment on above: Result Comment: Afri can Gambian GFR Calc Performed By: #### L 500.4100, L500.4050, L100.0100 #### [facility] [address] [place], [address] GAP 5 Normal 5-15 [facility] Comment on above: Performed By: #### L 500.4100, L500.4050, L100.0100 #### [facility] [address] [place], [address] GFR/1.73 sq M.predicted among non-blacks MDRD (S/P/Bld) [Vol rate/Area] 65 mL/min/{1.73_m2} Normal >60 [facility] Comment on above: Result Comment: Non- GFR Calc Performed By: #### L 500.4100, L500.4050, L100.0100 #### [facility] [address] [place], [address] Globulin (S) [Mass/Vol] 4.0 g/dL Normal 2.2-4.2 [facility] Comment on above: Performed By: #### L 500.4100, L500.4050, L100.0100 #### [facility] [address] [place], [address] Glucose [Mass/Vol] 126 mg/dL High 74-[address] [facility] Comment on above: Result Comment: Fast ing Glucose result greater than or equal to 126 mg/dL suggests DIABETES MELLITUS per A.D.A. criteria. Performed By: #### L 500.4100, L500.4050, L100.0100 #### [facility] [address] [place], [address] Potassium [Moles/Vol] 4.1 mmol/L Normal 3.5-5.1 [facility] Comment on above: Performed By: #### L 500.4100, L500.4050, L100.0100 #### [facility] [address] [place], [address] Sodium [Moles/Vol] 138 mmol/L Normal 136-[address] [facility] Comment on above: Performed By: #### L 500.4100, L500.4050, L100.0100 #### [facility] [address] [place], [address] T PROT 7.7 g/dL Normal 6.4-8.2 [facility] Comment on above: Performed By: #### L 500.4100, L500.4050, L100.0100 #### [facility] [address] [place], [address] Urea nitrogen [Mass/Vol] 9 mg/dL Normal 7-18 [facility] Comment on above: Performed By: #### L 500.4100, L500.4050, L100.0100 #### [facility] [address] [place], [address] Internal Medicine Office Vis lucia 01-28-2024 Internal Medicine Office Visit [facility] [address] [place] [address] [place] [address] OFFICE VISIT Date of Service: 01/28/24 MR#: [id number] Acct: [id number] Name: ROSY RICHARDSON Rep #: [id number] : 1985 Provider: Dr. Prince dumont MD Age/Sex: 38/F Location: [facility] Status: Signed Intake Vital Signs 08/04/23 13:05 01/28/24 09:30 Height 5 ft 4 in 5 ft 4 in Weight: 199 lb 6 oz BMI 34.2 BP 118/70 Blood Pressure Location Lt brachial Position Sitting Respiration 16 Pulse 89 Pulse Source Monitor Temp 97.7 F L Temp Source Temporal Pulse Oximetry (%) 98 Oxygen Delivery Method room air Intake Visit Reasons: yearly Chief Complaint: yearly Scientific Editor Required: No Accompanied by: Self Is patient in pain?: No Allergies paprika Allergy (Severe, Verified 01/28/24 09:28) Anaphylaxis shellfish derived Allergy (Severe, Verified 01/28/24 09:28) Anaphylaxis May Adverse Reaction (Verified 01/28/24 09:28) Other Medications ???Medication ???Instructions ???Recorded ???Confirmed ???Type NK 01/28/24 01/28/24 History PFSH Medical History (Updated 01/28/24 @ 12:[address] Prince Garcia MD) Vitamin D deficiency Screening for thyroid disorder Obesity (BMI 30-39.9) Preventative health care history of child PTSD (post-traumatic stress disorder) Anxiety ulcers GERD (gastroesophageal reflux disease) Hx of migraine headaches Carpal tunnel syndrome Anemia Seasonal allergies Surgical History History of carpal tunnel release Family History Daughter No problems noted. Father Anesthesia complication Brother Anxiety Mother Cervical cancer Cancer Melanoma Ovarian cancer Grandmother Cancer Heart disease Melanoma Grandfather High cholesterol Social History Smoking Status: Former smoker alcohol intake: current alcohol intake frequency: holidays/special occasions only Alcohol type: beer and wine substance use type: does not use what type of physical activity do you participate in: walking and yoga frequency: 1-2 times per week HPI HPI Chief Complaint: yearly Details: ROSY RICHARDSON, is a 38 F who presents to the office today for yearly visit. No significant change in personal or family history since her last visit. She states that she has made dietary and lifestyle changes since her last visit. Concerned about her weight, currently at a BMI of 34.2. History of breast or colon cancer. No tobacco or alcohol abuse. ROS Const Constitutional: No body ache, chills, excessive sweating, fatigue, fever(s), frequent falls, headache(s), snoring, weakness or change in appetite Eyes Eyes: No blurry vision, change in vision, bulging eyes, floaters, visual disturbances, eye pain or Light sensitivity ENT ENT: No abnormal hearing, ear or mastoid pain, tinnitus, balance problems, nosebleed/epistaxis, nasal congestion, headache(s), neck pain or sore throat Resp Respiratory: No cough, excessive phlegm production, pain on inspiration, shortness of breath, snoring or wheezing Cardio Cardiology: No chest pain at rest, chest pain with exertion, excessive sweating, dyspnea on exertion, lightheadedness, orthopnea or palpitations Gastro GI: No abdominal pain, change in bowel habits, constipation, cramping, diarrhea, nausea/dyspepsia or vomiting Genitourinary-Female: No burning urination, painful urination, urinary incontinence, urinary frequency, urinary hesitancy or suprapubic fullness Musc Musculoskeletal: No abnormal gait, joint pain, back pain, limited range of motion, loss of height, muscle cramps, muscle weakness, neck pain or numbness Skin Skin: No dry skin, redness, excessive hair growth, yellowing of the eye, lesions, itchy eyes, rash or wounds Neuro Neurology: No abnormal gait, abnormal hearing, behavioral changes, unsteady gait/balance, weakness, frequent falls, headache(s), memory loss, numbness or visual disturbances Psych Psychiatric: No anxiety, No behavioral changes, No change in appetite, No depression, No memory loss and No Thoughts of harming yourself/Others Endo Endocrine: No cold intolerance, excessive sweating, fatigue, flushing, heat intolerance, increased thirst/drinking or increased hunger Aller/Imm Allergy/Immunologic: No itchy eyes, seasonal allergy symptoms, hives or wheezing Stephan/Lymp Hematologic/Lymphatic : No easy bleeding or easy bruising Exam Const General: cooperative, comfortable and no acute distress Orientation: alert, awake and oriented x3 HENMT Head: normal to inspection, normocephalic and atraumatic Ears: hearing grossly normal bilaterally Eyes General: appearance normal, both eyes and all (more content not included)... Normal [facility] Lipid Profileon 01-28-2024 Cholesterol [Mass/Vol] 218 mg/dL High 200 [facility] Comment on above: Result Comment: <200 mg/dL Desirable 200-240 mg/dL Borderline >240 mg/dL High Risk Performed By: #### L 500.4100, L500.4050, L100.0100 #### [facility] [address] [place], [address] Cholesterol in HDL [Mass/Vol] 40 mg/dL Normal [facility] Comment on above: Result Comment: The drugs N-Acetylcysteine and Metamizole may falsely depress this assay. Reference Range HDL <40 mg/dL Low HDL Cholesterol HDL >or= 60 mg/dL High HDL Cholesterol Performed By: #### L 500.4100, L500.4050, L100.0100 #### [facility] [address] [place], [address] Cholesterol in LDL [Mass/Vol] 142 mg/dL High 0-130 [facility] Comment on above: Performed By: #### L 500.4100, L500.4050, L100.0100 #### [facility] [address] [place], [address] Cholesterol in VLDL [Mass/Vol] 36 mg/dL Normal 5-40 [facility] Comment on above: Performed By: #### L 500.4100, L500.4050, L100.0100 #### [facility] [address] [place], [address] Triglyceride [Mass/Vol] 178 mg/dL Normal [facility] Comment on above: Result Comment: The drugs N-Acetylcysteine and Metamizole may falsely depress this assay. Serum Triglycerides Reference Interval Normal <150 mg/dL Borderline high 150 - 199 mg/dL High 200 - 499 mg/dL Very High > or = 500 mg/dL Performed By: #### L 500.4100, L500.4050, L100.0100 #### [facility] [address] [place], [address] T4 Free Directon 01-28-2024 T4 FREE DIRECT 1.04 ng/dL Normal 0.76-1.46 [facility] Comment on above: Performed By: #### L 506.1000, L501.9520, L506.0400 #### [facility] [address] [place], [address] Thyroid Stim Hormone (TSH)on 01-28-2024 TSH 1.460 uIU/mL Normal 0.358-3.740 [facility] Comment on above: Performed By: #### L 506.1000, L501.9520, L506.0400 #### [facility] [address] [place], [address] Vitamin D,25 Hydroxyon 01-27 Vitamin D 25-OH 14.4 ng/mL Normal [facility] Comment on above: Result Comment: Ellen min D 25(OH) Status Range Deficiency <20 ng/mL (50nmol/L) Insufficiency 20 - 30 ng/mL (50 - 75 nmol/L) Sufficiency 30 - 100 ng/mL (75 - 250 nmol/L) Toxicity >100 ng/mL (>250 nmol/L) Performed By: #### L 506.1000, L501.9520, L506.0400 #### [facility] [address] [place], [address] CNOVon 10-17-2023 CNOV Office Visit (UCWSTR ) ROYS RICHARDSON ([id number]) 1985 F Date Time Provider Department 10/17/23 12:30 PM [facility] During your visit today, we recorded the following information about you: Temperature Pulse Respiration Blood pressure 98.6 degrees 94/minute 16/minute 112/70 Weight 88.9 kg Chriss Espinal APRN.CNP 10/17/2023 12:54 PM Signed Subjective HPI Nontoxic-appearing female presents urgent care chief complaint possible sinus infection. Patient states that sick 2 weeks ago. Diagnosed with COVID-19. States last week she developed sinus pressure. Has worsened in the last few days. No OTC medication use today. Has used OTC medications in the past this has not helped. Denies any fever body aches chills productive cough chest pain shortness of breath pleuritic pain hemoptysis nausea vomiting abdominal pain change in bowel or bladder habits. Past medical history prescription medication use and allergies reviewed. Denies chance of . Is not breast-feeding. 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 No date: Anxiety No date: Depression No date: Exercise-induced asthma Comment: SPORTS RELATED, no meds since teenager No date: Family history of ovarian cancer Comment: pt's mother should pursue BRCA testing No date: Headache No date: Heart murmur No date: History of kidney infection during No date: Irregular periods No date: Ovarian cyst PAST SURGICAL HISTORY No date: COLPOSCOPY CERVIX UPPER/ADJACENT VAGINA No date: EAR TUBES HX 2012: LEFT WRIST CARPAL TUNNEL ONLY; Left Comment: with removal of ganglion cyst ALLERGIES May, Hydrocodone-Acetamino phen, Macadamia Nut Oil, Nut - Unspecified, Paprika, Seasonal Allergies, Shellfish Derived, and Tree Nuts MEDICATIONS acetaminophen (TYLENOL) 325 mg tablet Take 650 mg by mouth every 6 hours as needed. traZODone (DESYREL) 100 mg tablet Take 100 mg by mouth once daily. (Patient not taking: Reported on 12/22/2022) busPIRone (BUSPAR) 15 mg tablet Take 15 mg by mouth twice daily. (Patient not taking: Reported on 12/22/2022) 04/03, 28, 1 mg-20 mcg (21)/75 mg (7) per tablet TAKE 1 TABLET BY MOUTH EVERY DAY (Patient not taking: Reported on 08/06/2021) fluconazole (DIFLUCAN) 150 mg tablet TAKE 1 TABLET BY MOUTH ONCE (Patient not taking: Reported on 08/06/2021) etonogestrel (NEXPLANON) subdermal implant 68 mg 68 mg by SUBDERMAL route. Placed 06/29/18 (Patient not taking: Reported on 12/22/2022) FAMILY HISTORY Problem Relation Age of Onset Cervical Cancer Mother 31 Ovarian cancer Mother 30 1 ovary removed Uterine Cancer Mother 31 Skin Cancer Mother BCC Arthritis Father Breast Cancer Maternal Grandmother 53 Skin Cancer Maternal Grandmother Melanoma Maternal Grandmother other (lymphoma) Maternal Grandmother Non-Hodgkins' Emphysema Maternal Grandfather Arthritis Paternal Grandmother Heart Paternal Grandmother Hyperlipidemia Paternal Grandmother Heart Paternal Grandfather Hyperlipidemia Paternal Grandfather Social History Tobacco Use Smoking status: Former Years: 4 Types: Cigarettes Quit date: 02/14/2013 Years since quittin.6 Smokeless tobacco: Never Substance Use Topics Alcohol use: Yes Comment: Rarely Drug use: No BP 112/70 Pulse 94 Temp 37 ?C (98.6 ?F) Resp 16 Wt 88.9 kg (195 lb 15.8 oz) LMP 06/24/2018 (Exact Date) SpO2 99% BMI 32.87 kg/m? Review of Systems Constitutional: Negative for chills, fever and malaise/fatigue. HENT: Positive for congestion and sinus pain. Negative for ear discharge, ear pain and sore throat. Eyes: Negative for blurred vision, pain, discharge and redness. Respiratory: Positive for cough and wheezing. Negative for hemoptysis, sputum production, shortness of breath and stridor. Cardiovascular: Negative for chest pain. Gastrointestinal: Negative for abdominal pain, diarrhea, nausea and vomiting. Musculoskeletal: Negative for myalgias. Skin: Negative for itching and rash. Neurological: Negative for dizziness and headaches. Objective Physical Exam Constitutional: General: She is not in acute distress. Appearance: She is not diaphoretic. HENT: Head: Normocephalic. Jaw: No trismus, tenderness, swelling or pain on movement. Right Ear: Tympanic membrane, ear canal and external ear normal. Left Ear: Tympanic membrane, ear canal and external ear normal. Nose: Congestion present. Mouth/Throat: Mouth: Mucous membranes are moist. Pharynx: Oropharynx is clear. Uvula midline. No pharyngeal swelling, oropharyngeal exudate, posterior oropharyngeal erythema or uvula swelling. Eyes: Conjunctiva/sclera: Conjunctivae normal. Pupil (more content not included)... Normal [facility] Inital Evaluation (1) - PTon 08-31-2023 Inital Evaluation (1) - PT [facility] [address] [place] [address]. [address] [place] [address] / REHABILITATION SERVICES INITIAL EVALUATION MR#: [id number] Acct: [id number] Name: ROSY RICHARDSON Rep #: [id number] : 1985 38 From: Kathleen Beard PT, Cert. MDT Referring Dr.: Dr. Rayshawn Smith MD Status: REG RCR Insurance: [facility] [place] [id number] SELF PAY INSURANCE Patient's Visit Information Visit Information Visit Information: ROSY RICHARDSON is a 38 year old F referred to Physical Therapy by Dr. Rayshawn Smith MD with a diagnosis of PAIN OF R SI JOINT. Date of Evaluation: 08/31/23 Physical Therapist: Kathleen Beard PT, Cert MDT Visit Plan Frequency: 2-3x /Week Duration: 4-6 Weeks Plan: CORE STRENGTHENING WITH A NEUTRAL SPINE. NURY LE ROM, STRETCHING AND STRENGTHENING. POSTURE TRAINING, SYSTEMS PLANNER TRAINING, AND INSTRUCTION IN APPROPRIATE ACTIVITY MODIFICATIONS TO PROMOTE HEALING AND DECREASED INFLAMMATION. HEP INSTRUCTION. 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 3 CHILDREN AGES 6 TO 15. LAST DISC GOLFED END OF MAY 2023. NOT OFF WORK FOR THIS CURRENTLY. Disability: NO Present symptoms: NURY LOW BACK PAIN R>L. PATIENT DENIES NURY LE SX'S. Present since: CHRONIC - STARTED YEARS AGO. FLARED UP MIDDLE OF JULY 2023 (JUST WOKE UP IN MORE PAIN). Pain Scale: WORST 8/10, LEAST 2/10 Currently: 3/10 Is it getting better, worse or staying the same: STAYING THE SAME Commenced as a result of: NO APPARENT REASON Symptoms at onset: MORE ON LEFT THAN R Worse: SITTING, RISING FROM SITTING AND REVERSE, SITTING TO LYING AND REVERSE, LEANING FORWARD IN SITTING, VACCUMING, SWEEPPING, PICKING THINGS UP OFF THE FLOOR, KNEELING, SQUATTING, STANDING WITH ONE FOOT ELEVATED, PROLONGED WALKING LIKE TO GROCERY SHOP, LYING ON EITHER SIDE Better: STANDING, WALKING, LYING RECLINED IN RECLINER, SUPINE LYING. Disturbed sleep: YES - IF MOVES Previous history/Previous treatment: NO BACK SURGERY, INJECTIONS, MASSAGE OR PT. PRESCRIPTION MEDS - NOT HELPFUL. NO PAIN MGMT IN THE PAST. PEDRITO POSE, PIRIFORMIS, DOWNWARD DOG, CAT/COW AND OTHER STRETCHES HAVE HELPED IN THE PAST BUT STOPPED WORKING. Treatment this episode: CHIROPRACTIC X 5 IN THE PAST MONTH - OVER-ALL NO EFFECT. FLEXERIL - HAS TRIED A FEW RECENTLY - NOT HELPING. ALSO TRIED ONE meloxicam - upset stomach - plans to discuss with DR. RÍOS TOMORROW. ONE PAIN MGMT VISIT. ONE CONSULT WITH DR. SMITH. DR. SMITH REFERRED HER TO DR. RÍOS FOR DIAGNOSTIC INJECTIONS WITH INJECTION PENDING TOMORROW (R PIRIFORMIS INJECTION). Coughing/sneezing/str aining: NEGATIVE FOR INCREASED PAIN. Gait: NO FALLS. NO AD'S. SOME PAIN ON STEPS. UP IS WORSE. Bowel or Bladder Dysfunction: NO Accidents: NO Unexplained weight loss: NO Imaging: X-RAY RESULTS ALL PER PATIENT REPORT: SPONDYLOLISTHESIS GRADE 1, SCLEROSIS OF R>L SI JTS, SACROILIITIS, ACETABULAR RETROVERSION NURY - INCIDENTAL FINDING. PMH/Recent major surgery: UNREMARKABLE. Objective Objective: Sitting/Standing Posture: ANTERIOR PELVIC TILT. NO RELEVANT LATERAL SHIFT. AVOIDS PARTIAL WT BEARING ON R LE IN STANDING AND WITH TRANSFERS SIT TO STAND AND REVERSE. Other Observations: THIS PATIENT AMBULATES INDEP'LY INTO PT WITHOUT ANY AD'S WITH SLOW ANTALGIC GAIT WITH DECREASED WT BEARING TIME ON R LE AND DECREASED TRUNK ROTATION. GAIT AND TRANSFERS ARE GUARDED. UE DEPENDENT SIT TO STAND. Sensory deficit: NURY LE LIGHT TOUCH SENSATION GROSSLY INTACT AND SYMMETRICAL ROM deficit: TIGHT NURY HS'S, HIP ROTATORS AND GASTROC-SOLEUS COMPLEX'S R>L. Motor deficit: R LE: HIP 4-/5, KNEE 5/5, ANKLE 5/5. L HIP 4/5, KNEE 5/5, ANKLE 5/5. Reflexes: NURY QUADS 2+, NUYR ACHILLES 1+ Dural Signs: POSITIVE R LE Lumbar mvmt loss: flex - MOD - INCREASES NURY LB R>L - NW ext - MIN - NE R SG - MIN - INCREASES R LB - NW L SG - MIN - INCREASES LB - NW Core strength: POOR Palpation: LOWER LUMBAR, SACRAL AND SI JT REGION TENDERNESS R>L. Balance/Special Test Scores Oswestry Low Back Score: 19 Goals Goal 1:: DECREASE C/O BACK PAIN BY AT LEAST 50% TO EASE WORK AND ADL FUNCTION Goal Time Frame: 4-6 Weeks Goal 2:: PATIENT WILL COMPLETE 10 STANDS IN 30 SECS WITHOUT UE ASSIST AND WITHOUT C/O TO DEMONSTRATE IMPROVED FUNCTIONAL STRENGTH Goal Time Frame: 4-6 Weeks Goal 3:: PATIENT WILL COMPLETE TUG IN < 10 SECS WITH NORMALIZED GAIT TO DEMONSTRATE IMPROVED GAIT STABILITY Goal 4:: Patient will be able to stand and walk for 30 minutes without increased symptoms/needing to sit down for increased ADL/recreational tolerance. Goal Time Frame: 4-6 Weeks Goal 5:: PATIENT WILL BE INDEP WITH A HEP FOR CONTINUED IMPROVEMENT ONCE FORMAL PHYSICAL THERAPY CONCLUDES. Goal Time Frame: 4-6 Weeks Rehabilitation Potential Physical Therapy Diagnosis: THIS PATIENT PRESENTS TO PT WITH C/O BACK PAIN R>L. SHE DEMO (more content not included)... Normal [facility] L/S Spine Min 4 Viewson L/S Spine Min 4 Views [facility] [address] [place] [address] L/S Spine Min 4 Views MR#: [id number] Acct: [id number] Name: ROSY RICHARDSON Rep #: [id number] : 1985 F 38 From: Gil crocker MD PCP: Dr. Prince Garcia MD Status: DEP AMB Study: L/S Spine Min 4 Views Date of Exam: 08/19/23 Exam# [id number] Ordering Dr: Rayshawn Smith MD [id number] STUDY: X-RAY - LUMBAR SPINE REASON FOR EXAM: Female, 38 years old. lbp -- Please do upright AP lateral flexion-extension TECHNIQUE: 4 view(s) of the lumbar spine were obtained. COMPARISON: None FINDINGS: Normal lumbar lordosis. There is no substantial scoliosis. There is a normal alignment of the vertebrae. Normal vertebral bodies and endplates. Normal disc space heights. The soft tissue structures are unremarkable. RAD/L/S Spine Min 4 Views IMPRESSION: Normal x-ray examination of the lumbar spine. Electronically Signed: Gil Paige MD at 13:50 EDT , CC: Dr. Rayshawn Smith MD; Dr. Prince Garcia MD Veterans Employment Representative: Signed Normal [facility] Orthopedic Visit Reporton Orthopedic Visit Report [facility] [address] [place] [address] OFFICE VISIT Date of Service: 08/19/23 MR#: [id number] Acct: [id number] Name: ROSY RICHARDSON Rep #: [id number] : 1985 Provider: Dr. Rayshawn Smith MD Age/Sex: 38/F Location: [facility] Status: Signed Intake Vital Signs 08/04/23 13:05 Height 5 ft 4 in Weight: 194 lb BMI 33.3 BP 100/60 Blood Pressure Location Lt brachial Position Sitting Respiration 14 Pulse 80 Pulse Source Monitor Temp 98.6 F Temp Source Temporal Pulse Oximetry (%) 99 Oxygen Delivery Method room air Intake Visit Reasons: LUMBAR SPINE Chief Complaint: Hip/Lumbar Spine Pain Accompanied by: Self Is patient in pain?: Yes Pain scale (1-10): 5 Allergies paprika Allergy (Severe, Verified 08/19/23 12:27) Anaphylaxis shellfish derived Allergy (Severe, Verified 08/19/23 12:27) Anaphylaxis May Adverse Reaction (Verified 08/19/23 12:27) Other Medications ???Medication ???Instructions ???Recorded ???Confirmed ???Type fluticasone propionate 50 1 spray intranasal BID PRN 04/21/21 08/19/23 Rx mcg/actuation nasal allergies, congestion #16 grams spray,suspension acetaminophen 500 mg tablet 500 - 1,000 mg PO DAILY PRN 01/13/23 08/19/23 History ibuprofen 400 mg tablet 400 mg PO Q8H PRN 01/13/23 08/19/23 History cyclobenzaprine 5 mg tablet 5 mg PO TID PRN muscle spasm #21 08/04/23 08/19/23 Rx tabs PFSH Medical History Preventative health care history of child PTSD (post-traumatic stress disorder) Anxiety ulcers GERD (gastroesophageal reflux disease) Hx of migraine headaches Carpal tunnel syndrome Anemia Seasonal allergies Surgical History History of carpal tunnel release Family History Daughter No problems noted. Father Anesthesia complication Brother Anxiety Mother Cervical cancer Cancer Melanoma Ovarian cancer Grandmother Cancer Heart disease Melanoma Grandfather High cholesterol Social History Smoking Status: Former smoker alcohol intake: current alcohol intake frequency: holidays/special occasions only Alcohol type: beer and wine substance use type: does not use what type of physical activity do you participate in: walking and yoga frequency: 1-2 times per week HPI LUMBAR SPINE Details: This documentation accurately reflects the service provided and the decisions made by me, Dr. Rayshawn Smith MD 08/19/23 1325. Part of today???s visit was documented by Nazia Alexandra ATC, acting as scribe. ROSY RICHARDSON is a 38 year old F here today for hip/lumbar spine pain. Patient states the hip and back have been hurting for a few years but now it is to a point where the pain is not manageable anymore. Patient denies any injury that caused the pain. She states she did have 10 pounds and 9 pounds babies so not sure if that would have caused anything. Patient describes most of the pain on the right lower back above the buttocks area. She states it can wrap around to the side depending on what she is doing. Patient denies any numbness, tingling or radiating pain that goes down into her legs. She states she does get some radiating pain up into the upper back but nothing down into the legs. Patient states she does get an achy type of pain into the right groin area. Patient denies any back injections done other than epidurals during . Patient denies any physical therapy at all. Patient states that [place] prescribed her a muscle relaxer but she hasn't taken many of those and did not get any relief from what she did take. She states she does take Tylenol and Ibuprofen for the pain when she feels she needs it. Patient denies any surgeries to the back at all. Rosy has had left-sided pain for the last 2 years which has now resolved but about 2 to 3 weeks ago she started having acute right-sided pain which is probably the right posterior hip region near the SI joint region. She denies any radiation. She denies any difficulty walking distances. Sitting is worse than standing. She has not had any physical therapy or injections. Ortho Exam General General: Yes no acute distress Neurologic: Yes alert and Yes oriented x3 Spine SPINE TESTING CERVICAL THORACIC LUMBAR Musculoskeletal Strength 0=absent - 5=normal Details: Examination of the spine shows no spinous process or paraspinal tenderness. There is tenderness over the right SI joint area. Neurologic motion of lower extremity shows 5 out of 5 power normal shows normal sensations in all dermatomes. Passive and active straight leg raise test is nega (more content not included)... Normal [facility] Internal Medicine Office Vis iton 08-04-2023 Internal Medicine Office Visit [facility] [address] [place] [address] [place] [address] OFFICE VISIT Date of Service: 08/04/23 MR#: [id number] Acct: [id number] Name: ROSY RICHARDSON Rep #: [id number] : 1985 Provider: ZAC Ackerman Age/Sex: 37/F Location: [facility] Status: Signed Intake Vital Signs 01/13/23 14:03 08/04/23 13:05 Height 5 ft 4 in 5 ft 4 in Weight: 180 lb 194 lb BMI 30.9 33.3 BP 112/72 100/60 Blood Pressure Location Lt brachial Lt brachial Position Sitting Sitting Respiration 14 Pulse 52 L 80 Pulse Source Monitor Monitor Temp 99.1 F 98.6 F Temp Source Temporal Temporal Pulse Oximetry (%) 99 99 Oxygen Delivery Method room air room air Intake Visit Reasons: acute - back/hip pain Scientific Editor Required: No Is patient in pain?: Yes (R hip) Pain scale (1-10): 4 Allergies paprika Allergy (Severe, Verified 08/04/23 12:57) Anaphylaxis shellfish derived Allergy (Severe, Verified 08/04/23 12:57) Anaphylaxis May Adverse Reaction (Verified 08/04/23 12:57) Other Medications ???Medication ???Instructions ???Recorded ???Confirmed ???Type fluticasone propionate 50 1 spray intranasal BID PRN 04/21/21 08/04/23 Rx mcg/actuation nasal allergies, congestion #16 grams spray,suspension acetaminophen 500 mg tablet 500 - 1,000 mg PO DAILY PRN 01/13/23 08/04/23 History ibuprofen 400 mg tablet 400 mg PO Q8H PRN 01/13/23 08/04/23 History cyclobenzaprine 5 mg tablet 5 mg PO TID PRN muscle spasm #21 08/04/23 08/04/23 Rx tabs Nurse's Note: R hip and low back are bothering her. Did not injure it. States it started wednesday. Hurts when bending and stooping. It goes away when she sits for awhile. Has tried ice heat, ibuprofen, tylneol and dual action. It is constant. Is worse when she goes to sit, and changing positions. Describes the pain as tight and stabby. It goes down leg and up into the back. Has had hip problems for 10 years. Has been told she has sciatica, SIJoint, piriformis syndrome. L side is normally affected. Pain goes up to an 8 when she does something. [facility] Medical History Preventative health care history of child PTSD (post-traumatic stress disorder) Anxiety ulcers GERD (gastroesophageal reflux disease) Hx of migraine headaches Carpal tunnel syndrome Anemia Seasonal allergies Surgical History History of carpal tunnel release Family History Daughter No problems noted. Father Anesthesia complication Brother Anxiety Mother Cervical cancer Cancer Melanoma Ovarian cancer Grandmother Cancer Heart disease Melanoma Grandfather High cholesterol Social History Smoking Status: Former smoker alcohol intake: current alcohol intake frequency: holidays/special occasions only Alcohol type: beer and wine substance use type: does not use what type of physical activity do you participate in: walking and yoga frequency: 1-2 times per week HPI HPI Details: ROSY RICHARDSON, is a 37 F who presents to the office today for right hip and lower back issues. She states that she has had hip issues for a long time. She has had left sided hip pains for over 10 years after giving . She states that the right side started to have pains on Wednesday. She states that Wednesday she had a couch day which is a lazy day where they sit and watch tv for the day. She states that she noticed the pains later on when she was up standing preparing dinner. Pains are localized on the left side of the lower back / hip area which some radiation down the back of the upper leg (does not radiate down much). She states that changing positions makes it worse such as sitting standing or if she leans forward while seated. She states that prolonged sitting hurts. If she is standing, she states that it actually feels ok. She denies any numbness / tingling or any swelling. She has tried otc medications such as tylenol / Ibuprofen as well as ice and heat none of which provided relief. She has not noticed any swelling. No other symptoms in the lower extremity. ROS Const Constitutional: No body ache, chills, excessive sweating, fatigue, fever(s), frequent falls, headache(s), snoring, weakness, sleep problems or change in appetite Eyes Eyes: No blurry vision, change in vision, eye pain or Light sensitivity ENT ENT: No abnormal hearing, ear or mastoid pain, tinnitus, nasal congestion, headache(s), neck pain or sore throat Resp Respiratory: No cough, shortness of breath, snoring or wheezing Cardio Cardiology: No chest pain at rest, chest pain with exertion, excessive sweating, shortness of (more content not included)... Normal [facility] Pelvis 1 or 2 Viewson 2023 Pelvis 1 or 2 Views [facility] [address] [place] [address] Pelvis 1 or 2 Views MR#: [id number] Acct: [id number] Name: ROSY RICHARDSON Rep #: [id number] : 1985 F 37 From: Ciro Skinner DO PCP: Dr. Prince Garcia MD Status: REG CLI Study: Pelvis 1 or 2 Views Date of Exam: 08/04/23 Exam# [id number] Ordering Dr: [place]m [place] [id number] INDICATION: pain EXAMINATION/TECHNIQUE : X-RAY - XR Pelvis 1 View COMPARISON: __ FINDINGS: PELVIC BONES: No displaced fracture, destructive or sclerotic lesions. Note that overlapping bowel shadows may however obscure fine detail. Sacroiliac joints are unremarkable. No widening of the pubic symphysis. HIPS: The articular structures are unremarkable. No displaced fracture seen in this frontal view. SOFT TISSUES: No soft tissue swelling or gas. RAD/Pelvis 1 or 2 Views IMPRESSION: No evidence of displaced pelvic or hip fracture. Electronically Signed: Ciro Skinner DO at 18:12 EDT , CC: Dr. Prince Garcia MD; ZAC Ackerman [employer] Representative: Signed Normal [facility] Absolute lymphocyte countOrd ered By: Prince Garcia on 01-13-2023 Lymphocytes Auto (Unsp spec) [#/Vol] 2.79 10*3/uL 0.83-4.51 [facility] Basophil percentageOrdered B y: Prince Garcia on 01-13-2023 Basophils/100 WBC (Bld) 0.9 % 0-1 [facility] Bilirubin [Mass/Vol] 0.40 mg/dL 0.20-1.00 [facility] Comment on above: For patients on eltr ombopag therapy, use of Dimension [place] TBIL is not recommended. Chloride [Moles/Vol] 105 mmol/L 98-107 [facility] Cholesterol [Mass/Vol] 211 mg/dL <200 [facility] Comment on above: <200 mg/dL Desirable 200-240 mg/dL Borderline >240 mg/dL High Risk Eosinophils/100 WBC (Bld) 1.9 % 0-5 [facility] Glucose [Mass/Vol] 88 mg/dL 74-[address] [facility] Neutrophils (Bld) [#/Vol] 4.3 10*3/uL 2.0-7.7 [facility] Neutrophils/100 WBC (Bld) 54.0 % 47-70 [facility] Potassium [Moles/Vol] 3.9 mmol/L 3.5-5.1 [facility] Protein [Mass/Vol] 8.1 g/dL 6.4-8.[address] [facility] Sodium [Moles/Vol] 137 mmol/L 136-[address] [facility] Triglyceride [Mass/Vol] 302 mg/dL <199 [facility] Comment on above: The drugs N-Acetylcy steine and Metamizole may falsely depress this assay.Serum Triglycerides Reference Interval Normal <150 mg/dL Borderline high 150 - 199 mg/dL High 200 - 499 mg/dL Very High > or = 500 mg/dL WBC (Bld) [#/Vol] 8.0 10*3/uL 4.4-11.[address] [facility] Blood erythrocytes count (nu mber/volume)Ordered By: Prince Gacria on 01-13-2023 RBC (Bld) [#/Vol] 4.59 10*6/uL 4.2-5.4 [facility] Blood hemoglobin measurement (mass/volume)Ordered By: Prince Garcia on 01-13-2023 Hemoglobin (Bld) [Mass/Vol] 13.3 g/dL 12.0-15.0 [facility] Blood lymphocytes/100 leukoc ytesOrdered By: Prince Garcia on 01-13-2023 Lymphocytes/100 WBC (Bld) 35.1 % 19-41 [facility] Blood monocytes/100 leukocyt esOrdered By: Prince Garcia on 01-13-2023 Monocytes/100 WBC (Bld) 7.7 % 0-10 [facility] Blood platelet mean volumeOr dered By: Prince Garcia on 01-13-2023 Platelet mean volume (Bld) [Entitic vol] 11.9 fL 6.2-12.0 [facility] Determination of erythrocyte mean corpuscular volume (MCV)Ordered By: Prince Garcia on 01-13-2023 MCV (RBC) [Entitic vol] 90.2 fL 81-99 [facility] Hematocrit Auto (Bld) [Volum e fraction]Ordered By: Prince Garcia on 11-01-2023 Hematocrit (Bld) [Volume fraction] 41.4 % 37-47 [facility] Laboratory - Chemistry and C hemistry - challengeOrdered By: Prince Garcia on 01-13-2023 ALP [Catalytic activity/Vol] 80 U/L 45-117 [facility] ALT [Catalytic activity/Vol] 22 U/L 13-56 [facility] CO2 [Moles/Vol] 26.0 mmol/L 21.0-32.0 [facility] Globulin (S) [Mass/Vol] 4.3 g/dL 2.2-4.2 [facility] Urea nitrogen/Creatinine [Mass ratio] 14.0 mg/mg 10-20 [facility] Laboratory - Hematology and Cell countsOrdered By: Prince Garcia on 01-13-2023 Erythrocyte distribution width (RBC) [Entitic vol] 40.9 fL 35.1-43.9 [facility] Erythrocyte distribution width (RBC) [Ratio] 12.4 % 11.6-14.6 [facility] Immature granulocytes/100 WBC (Bld) 0.400 % 0.0-0.9 [facility] Comment on above: IG% - Immature Granu locytes (promyelocytes, myelocytes and metamyelocytes) > 1% indicates that a LEFT SHIFT is Present. MCH (RBC) [Entitic mass] 29.0 pg 27.0-32.0 [facility] Nucleated RBC/100 WBC (Bld) [Ratio] 0 % 0-5 [facility] MCHC Auto (RBC) [Mass/Vol]Or dered By: Prince Garcia on 01-13-2023 MCHC (RBC) [Mass/Vol] 32.1 g/dL 32-36 [facility] No Panel InformationOrdered By: Prince Garcia on 01-13-2023 Estimated GFR (MDRD) Amer 107 mL/min >60 [facility] Comment on above: GFR Calc Estimated GFR (MDRD) Non-Af Amer 88 mL/min >60 [facility] Comment on above: Non- GFR Calc Platelets bldOrdered By: Solomon Garcia on 01-13-2023 Platelets (Bld) [#/Vol] 307 10*3/uL 150-450 [facility] Serum or plasma albumin rosalva urement (mass/volume)Ordered By: Prince Garcia on 01-13-2023 Albumin [Mass/Vol] 3.8 g/dL 3.2-5.[address] [facility] Serum or plasma albumin/glob ulin mass ratioOrdered By: Prince Garcia on 01-13-2023 Albumin/Globulin [Mass ratio] 0.9 {ratio} 0.9-2.4 [facility] Serum or plasma calcium rosalva urement (mass/volume)Ordered By: Prince Garcia on 01-13-2023 Calcium [Mass/Vol] 8.8 mg/dL 8.5-10.[address] [facility] Serum or plasma cholesterol in HDL measurement (mass/volume)Ordered By: Prince Garcia on 01-13-2023 Cholesterol in HDL [Mass/Vol] 42 mg/dL >40 [facility] Comment on above: The drugs N-Acetylcy steine and Metamizole may falsely depress this assay. Reference Range HDL <40 mg/dL Low HDL Cholesterol HDL >or= 60 mg/dL High HDL Cholesterol Serum or plasma cholesterol in VLDL measurement (mass/volume)Ordered By: Prince Garcia on 01-13-2023 Cholesterol in VLDL [Mass/Vol] 60 mg/dL 5-40 [facility] Serum or plasma creatinine m easurement (mass/volume)Ordered By: Prince Garcia on 01-13-2023 Creatinine [Mass/Vol] 0.79 mg/dL 0.55-1.02 [facility] Comment on above: The validity of the calculated GFR & GFRAA in patients over 70 years has not been determined. Clinical correlation is essential. Serum or plasma low density lipoprotein (LDL) cholesterol measurement (mass/volume)Ordered By: Prince Garcia on 01-13-2023 Cholesterol in LDL [Mass/Vol] 109 mg/dL 0-130 [facility] Serum or plasma urea nitroge n measurement (mass/volume)Ordered By: Prince Garcia on 01-13-2023 Urea nitrogen [Mass/Vol] 11 mg/dL 7-18 [facility] Thin prep Papanicolaou smear with manual screeningOrdered By: Prince Garcia on 01-13-2023 Thin prep Papanicolaou smear with manual screening 16 U/L 15-37 [facility] Thin prep Papanicolaou smear with manual screening 6 5-15 [facility] STREP A MOLECULAR (POC)on Procedural Control Valid [facility] Strep A (POCT) Negative Negative [facility] Depart Summaryon 02-20-2017 Depart Summary Normal [facility] [place] HHon 02-20-2017 Hematocrit (HCT) 34.3 % Low 37.0-47.0 [facility] ([place] Comment on above: Performed By: #### H H ####[address] [place], [place] [address] Hemoglobin mass conc (Bld) 10.9 G/dL Low 12.0-16.0 [facility] ([place] Comment on above: Performed By: #### H H ####[address] [place], [place] [address] [place] Discharge Summaryon 02-20-2017 [place] Discharge Summary Normal [facility] [place]) [place] History and Physica dillan 02-20-2017 [place] History and Physical Normal [facility]) [place] [facility] [place] [facility] [place] [facility] Normal [facility]) [place] Delivery Summaryon 02-19-2017 [place] Delivery Summary Normal [facility]) .Auto Diffon 02-18-2017 Basophils Auto #/vol (Bld) 0.10 10 3/mcL Normal 0.00-0.19 [facility]) Comment on above: Performed By: #### C BC, ADIFF, ANEU, ABOG, ANSG ####[address] [place], [place] [address] Basophils/100 WBC Auto (Bld) 0.5 % Normal 0.0-2.5 [facility]) Comment on above: Performed By: #### C BC, ADIFF, ANEU, ABOG, ANSG ####[address] [place], [place] [address] Eosinophils 0.20 10 3/mcL Normal 0.00-0.40 [facility] ([place] Comment on above: Performed By: #### C BC, ADIFF, ANEU, ABOG, ANSG ####[id number] [place], [place] [address] Eosinophils/100 leukocytes 1.4 % Normal 0.0-7.0 [facility] ([place]) Comment on above: Performed By: #### C BC, ADIFF, ANEU, ABOG, ANSG ####[id number] [place], [place] [address] Lymphocytes 3.50 10 3/mcL Normal 0.77-3.85 [facility] ([place]) Comment on above: Performed By: #### C BC, ADIFF, ANEU, ABOG, ANSG ####[address] [place], [place] [address] Lymphocytes/100 leukocytes 30.5 % Normal 10.0-50.0 [facility] ([place] Comment on above: Performed By: #### C BC, ADIFF, ANEU, ABOG, ANSG ####[address] [place], [place] [address] Monocytes 0.80 10 3/mcL Normal 0.15-1.00 [facility] ([place] Comment on above: Performed By: #### C BC, ADIFF, ANEU, ABOG, ANSG ####[id number] [place], [place] [address] Monocytes/100 leukocytes 7.4 % Normal 1.7-13.0 [facility] ([place] Comment on above: Performed By: #### C BC, ADIFF, ANEU, ABOG, ANSG ####[address] [place], [place] [address] Neutrophils/100 WBC Auto (Bld) 60.2 % Normal 37.0-80.0 [facility] ([place] Comment on above: Performed By: #### C BC, ADIFF, ANEU, ABOG, ANSG ####[address] [place], [place] [address] .NEUABSon 02-18-2017 Neutrophils 6.90 10 3/mcL High 2.85-6.16 [facility] ([place] Comment on above: Performed By: #### C BC, ADIFF, ANEU, ABOG, ANSG ####[address] [place], [place] [address] CBCon 02-18-2017 Erythrocyte distribution width Auto Ratio (RBC) 13.6 % Normal 11.5-14.5 [facility] ([place] Comment on above: Performed By: #### C BC, ADIFF, ANEU, ABOG, ANSG ####[address] [place], [place] [address] Erythrocytes (RBC) 3.94 10 6/mcL Low 4.20-5.40 [facility] ([place]) Comment on above: Performed By: #### C BC, ADIFF, ANEU, ABOG, ANSG ####[address] [place], [place] [address] Hematocrit (HCT) 32.9 % Low 37.0-47.0 [facility] ([place] Comment on above: Performed By: #### C BC, ADIFF, ANEU, ABOG, ANSG ####[address] [place], [place] [address] Hemoglobin mass conc (Bld) 10.6 G/dL Low 12.0-16.0 [facility] ([place] Comment on above: Performed By: #### C BC, ADIFF, ANEU, ABOG, ANSG ####[address] [place], [place] [address] MCH 27.0 pg Normal 27.0-31.2 [facility] ([place] Comment on above: Performed By: #### C BC, ADIFF, ANEU, ABOG, ANSG ####[address] [place], [place] [address] MCHC mass conc (RBC) 32.4 G/dL Low 33.0-37.0 [facility] ([place]) Comment on above: Performed By: #### C BC, ADIFF, ANEU, ABOG, ANSG ####[address] [place] [id number] MCV 83.6 fL Normal 80.0-94.0 [facility] ([place]) Comment on above: Performed By: #### C JUNAID ADDIAN ANEU, ABOG, ANSG ####[address] [place], [place] [address] Platelet mean volume (PMV) 10.1 fL Normal 7.4-10.4 [facility] ([place] Comment on above: Performed By: #### C BC, ADDIAN, ANEU, ABOG, ANSG ####[address] [place], [place] [address] Platelets 233 10 3/mcL Normal 130-400 [facility] ([place] Comment on above: Performed By: #### C BC, JL, ANEU, ABOG, ANSG ####[address] [place], [place] [address] WBC (Leukocytes) 11.40 10 3/mcL High 4.60-10.80 [facility] ([place] Comment on above: Performed By: #### C BC, ADDIAN, ANEU, ABOG, ANSG ####[address] [place], [place] [address] Gel ABOon 02-18-2017 ABO/Rh Interp Positive Invalid Interpretation Code [facility] ([place] Comment on above: Performed By: #### C BC, ADDIAN, ANEU, ABOG, ANSG ####[id number] [place], [place] [address] Gel ABSon 02-18-2017 Antibody Screen Gel Negative Normal [facility] ([place] Comment on above: Performed By: #### C BC, ADDIAN, ANEU, ABOG, ANSG ####[address] [place], [place] [address] [place] Procedure Noteon [place] Procedure Note Normal [facility] ([place]) [place] Procedure Note Normal [facility] [place] .Urinalysis Microscopic (AO) on 01-27-2017 UA Squam Epithelial None Seen Normal None Seen [facility] ([place] Comment on above: Performed By: #### U A, UAMICAO ####[address] [place], [place] [address] UA WBC None Seen Normal None Seen [facility] ([place] Comment on above: Performed By: #### U A, UAMICAO ####[address] [place], [place] [address] Urine, erythrocytes None Seen Normal None Seen [facility] ([place] Comment on above: Performed By: #### U A, UAMICAO ####[address] [place], [place] [address] Depart Summaryon 01-27-2017 Depart Summary [facility] ([place]) [place] [facility] [place] 01-27-2017 [place] [facility] ([place] UAon 01-27-2017 UA Appear CLEAR [facility] ([place] Comment on above: Performed By: #### U A, UAMICAO ####[address] [place] [address] UA Blood Negative [facility] ([place] Comment on above: Performed By: #### U A, UAMICAO ####[address] [place], [place] [address] UA Leuk Est Negative [facility] ([place] Comment on above: Performed By: #### U A, UAMICAO ####[address] [place], [place] [address] UA Nitrite Negative [facility] ([place] Comment on above: Performed By: #### U A, UAMICAO ####[address] [place], [place] [address] UA pH 6.0 [facility] ([place] Comment on above: Performed By: #### U A, UAMICAO ####[address] [place], [place] [address] UA Protein Negative [facility] ([place] Comment on above: Performed By: #### U A, UAMICAO ####[address] [place], [place] [address] UA Spec Grav 1.025 [facility] ([place] Comment on above: Performed By: #### U A, UAMICAO ####[id number] [place], [place] [address] UA Specimen Type Clean Catch [facility] ([place] Comment on above: Performed By: #### U A, UAMICAO ####[address] [place], [place] [address] UA Urobilinogen 1.0 E.U./dL [facility] ([place] Comment on above: Performed By: #### U A, UAMICAO ####[address] [place], [place] [address] Urine, color YELLOW [facility] ([place]) Comment on above: Performed By: #### U A, UAMICAO ####[address] [place], [place] [address] Urine, glucose Negative [facility] ([place]) Comment on above: Performed By: #### U A, UAMICAO ####[address] [place], [place] [address] Urine, ketones presence TRACE [facility] ([place] Comment on above: Performed By: #### U A, UAMICAO ####[address] [place], [place] [address] Urine, urobilinogen Negative [facility] ([place]) Comment on above: Performed By: #### U A, UAMICAO ####[address] [place], [place] [address] GBPCRon 01-24-2017 GBPCR . MICRO - MicrobiologyPROCEDURE : Group B Strep PCR [*1] Vaginal Rectal BODY SITE:COLLECTED DATE/TIME: 01/22/2017 10:10 EST RECEIVED DATE/TIME: 01/22/2017 20:36 ESTSTART DATE/TIME: 01/22/2017 20:36 EST FREE TEXT SOURCE:FINAL REPORTSFinal Report []Verified Date/Time/Personnel: 01/24/2017 15:48 ESTGBS NEGATIVE.Group B Streptococcus DNA not detected by Real-Time.Polymerase Chain Reaction (PCR). A negative result doesnot rule out the possibility of Group B StreptococcusFalse negative results may occur when Group BStreptococcus concentration is below the level ofdetection of 200 CFU/mL of sample preparation reagent.If the patient has signs or symptoms of infection,other laboratory tests and clinical information shouldbe used to confirm the negative result. This test is notintended to differentiate carriers of Group BStreptococcus from those with Streptococcus disease.Performing Locations*1: This test was performed at: [facility], [address] [place] [address], [facility] , [facility] ([place]) Comment on above: Performed By: #### G BPCR ####[place] [address] .Auto Diffon 01-23-2017 Basophils Auto #/vol (Bld) 0.10 10 3/mcL Normal 0.00-0.19 [facility] ([place]) Comment on above: Performed By: #### H H, GLU1P ####[address] [place], [place] [address] Basophils/100 WBC Auto (Bld) 0.5 % Normal 0.0-2.5 [facility] ([place]) Comment on above: Performed By: #### H H, GLU1P ####[address] [place], [place] [address] Eosinophils 0.10 10 3/mcL Normal 0.00-0.40 [facility] ([place]) Comment on above: Performed By: #### H H, GLU1P ####[address] [place], [place] [address] Eosinophils/100 leukocytes 1.0 % Normal 0.0-7.0 [facility] ([place]) Comment on above: Performed By: #### H H, GLU1P ####[address] [place], [place] [address] Lymphocytes 2.50 10 3/mcL Normal 0.77-3.85 [facility] ([place]) Comment on above: Performed By: #### H H, GLU1P ####[address] [place], [place] [address] Lymphocytes/100 leukocytes 22.0 % Normal 10.0-50.0 [facility] ([place]) Comment on above: Performed By: #### H Celestine, GLU1P ####[address] [place], [place] [address] Monocytes 0.50 10 3/mcL Normal 0.15-1.00 [facility] ([place]) Comment on above: Performed By: #### H H, GLU1P ####[address] [place], [place] [address] Monocytes/100 leukocytes 4.9 % Normal 1.7-13.0 [facility] ([place]) Comment on above: Performed By: #### H Celestine, GLU1P ####[address] [place], [place] [address] Neutrophils/100 WBC Auto (Bld) 71.6 % Normal 37.0-80.0 [facility] ([place]) Comment on above: Performed By: #### Celestine Sprague, GLU1P ####[address] [place], [place] [address] .GFRon 01-23-2017 eGFR (non-black) mL/min/{1.73_m2} Normal [facility] ([place]) Comment on above: Result Comment: GFR Population mean for , Non- Americans Ages 20-29 = 116 mL/min/1.73 sq.m. Ages 30-39 = 107 mL/min/1.73 sq.m. Ages 40-49 = 99 mL/min/1.73 sq.m. Ages 50-59 = 93 mL/min/1.73 sq.m. Ages 60-69 = 85 mL/min/1.73 sq.m. Ages 70+ = 75 mL/min/1.73 sq.m.Chronic Kidney Disease: Less than 60 mL/min/1.73 square metersEnd Stage Renal Disease: Less than 15 mL/min/1.73 square meters Performed By: #### H H, GLU1P ####[address] [place], [place] [address] eGFR (non-black) 133 ml/min/1.73sqm Normal [facility] ([place]) Comment on above: Result Comment: GFR Population mean for , Non- Americans Ages 20-29 = 116 mL/min/1.73 sq.m. Ages 30-39 = 107 mL/min/1.73 sq.m. Ages 40-49 = 99 mL/min/1.73 sq.m. Ages 50-59 = 93 mL/min/1.73 sq.m. Ages 60-69 = 85 mL/min/1.73 sq.m. Ages 70+ = 75 mL/min/1.73 sq.m.Chronic Kidney Disease: Less than 60 mL/min/1.73 square metersEnd Stage Renal Disease: Less than 15 mL/min/1.73 square meters Performed By: #### Celestine Sprague GLU1P ####[address] [place], [place] [address] .NEUABSon 01-23-2017 Neutrophils 8.00 10 3/mcL High 2.85-6.16 [facility] ([place]) Comment on above: Performed By: #### Celestine Sprague GLU1P ####[address] [place], [place] [address] .Urinalysis Microscopic (AO) on 01-23-2017 UA Bacteria 1+ /hpf Abnormal [facility] ([place]) Comment on above: Performed By: #### Celestine Sprague GLU1P ####[address] [place], [place] [address] UA Squam Epithelial 10-15 Abnormal None Seen [facility] ([place]) Comment on above: Performed By: #### Celestine Sprague GLU1P ####[address] [place], [place] [address] UA WBC 15-25 Abnormal None Seen [facility] ([place]) Comment on above: Performed By: #### Celestine Sprague GLU1P ####[address] [place], [place] [address] Urine, erythrocytes 0-5 Abnormal None Seen [facility] ([place]) Comment on above: Performed By: #### Celestine Sprague, GLU1P ####[address] [place], [place] [address] CBCon 01-23-2017 Erythrocyte distribution width Auto Ratio (RBC) 13.2 % Normal 11.5-14.5 [facility] ([place]) Comment on above: Performed By: #### H H, GLU1P ####[address] [place], [place] [address] Erythrocytes (RBC) 3.74 10 6/mcL Low 4.20-5.40 [facility] ([place]) Comment on above: Performed By: #### H H, GLU1P ####[address] [place], [place] [address] Hematocrit (HCT) 31.6 % Low 37.0-47.0 [facility] ([place]) Comment on above: Performed By: #### H H, GLU1P ####[address] [place], [place] [address] Hemoglobin mass conc (Bld) 10.4 G/dL Low 12.0-16.0 [facility] ([place]) Comment on above: Performed By: #### H H, GLU1P ####[address] [place], [place] [address] MCH 27.9 pg Normal 27.0-31.2 [facility] ([place]) Comment on above: Performed By: #### H H, GLU1P ####[address] [place], [place] [address] MCHC mass conc (RBC) 33.0 G/dL Normal 33.0-37.0 [facility] ([place]) Comment on above: Performed By: #### H H, GLU1P ####[address] [place], [place] [address] MCV 84.4 fL Normal 80.0-94.0 [facility] ([place]) Comment on above: Performed By: #### H H, GLU1P ####[address] [place], [place] [address] Platelet mean volume (PMV) 9.9 fL Normal 7.4-10.4 [facility] ([place]) Comment on above: Performed By: #### H H, GLU1P ####[address] [place], [place] [address] Platelets 221 10 3/mcL Normal 130-400 [facility] ([place]) Comment on above: Performed By: #### H H, GLU1P ####[address] [place], [place] [address] WBC (Leukocytes) 11.10 10 3/mcL High 4.60-10.80 [facility] ([place]) Comment on above: Performed By: #### H H, GLU1P ####[address] [place], [place] [address] CMPon 01-23-2017 Alanine aminotransferase (ALT) 10 U/L Normal 10-35 [facility] ([place]) Comment on above: Performed By: #### H H, GLU1P ####[address] [place], [place] [address] Albumin 3.5 G/dL Normal 3.5-5.0 [facility] ([place]) Comment on above: Performed By: #### H H, GLU1P ####[address] [place], [place] [address] Albumin/Globulin Ratio 1.5 {ratio} Normal 1.1-2.5 A [facility] ([place]) Comment on above: Performed By: #### H H, GLU1P ####[address] [place], [place] [address] Alk Phos 127 IU/L Normal 40-135 [facility] ([place]) Comment on above: Performed By: #### H H, GLU1P ####[address] [place], [place] [address] Aspartate aminotransferase (AST) 19 U/L Normal 10-40 [facility] ([place]) Comment on above: Performed By: #### H H, GLU1P ####[address] [place], [place] [address] Bili Total 0.2 mg/dL Normal 0.2-1.0 [facility] ([place]) Comment on above: Performed By: #### H H, GLU1P ####[address] [place], [place] [address] BUN/Creatinine Ratio 7 ratio Normal 7-27 [facility] ([place]) Comment on above: Performed By: #### H H, GLU1P ####[address] [place], [place] [address] Calcium 9.9 mg/dL Normal 8.4-10.2 [facility] ([place]) Comment on above: Performed By: #### H H, GLU1P ####[address] [place], [place] [address] Chloride 104 mmol/L Normal 98-107 [facility] ([place]) Comment on above: Performed By: #### H H, GLU1P ####[address] [place], [place] [address] CO2 23 mmol/L Normal 22-29 [facility] ([place]) Comment on above: Performed By: #### H H, GLU1P ####[address] [place], [place] [address] Creatinine 0.6 mg/dL Normal 0.6-1.2 [facility] ([place]) Comment on above: Performed By: #### H H, GLU1P ####[address] [place], [place] [address] Electrolyte Balance 10.0 mEq/L Normal [facility] ([place]) Comment on above: Performed By: #### H H, GLU1P ####[address] [place], [place] [address] Globulin 2.4 G/dL Normal [facility] ([place]) Comment on above: Performed By: #### H H, GLU1P ####[address] [place], [place] [address] Glucose mass conc 117 mg/dL High 70-105 [facility] ([place]) Comment on above: Performed By: #### H H, GLU1P ####[address] [place], [place] [address] Potassium molar conc 3.7 mmol/L Normal 3.5-5.1 [facility] ([place]) Comment on above: Performed By: #### H H, GLU1P ####[address] [place], [place] [address] Protein 5.9 G/dL Low 6.0-8.3 [facility] ([place]) Comment on above: Performed By: #### H H, GLU1P ####[address] [place], [place] [address] Sodium 137 mmol/L Normal 136-146 [facility] ([place]) Comment on above: Performed By: #### H H, GLU1P ####[address] [place], [place] [address] Urea nitrogen 4.0 mg/dL Low 7.0-18.0 [facility] ([place]) Comment on above: Performed By: #### H H, GLU1P ####[address] [place], [place] [address] Depart Summaryon 01-23-2017 Depart Summary [facility] ([place]) [facility] [place] 01-[facility]2017 [facility] ([place]) UAon 01-23-2017 UA Appear CLOUDY [facility] ([place]) Comment on above: Performed By: #### H H, GLU1P ####[address] [place], [place] [address] UA Blood Negative [facility] ([place]) Comment on above: Performed By: #### H H, GLU1P ####[address] [place], [place] [address] UA Leuk Est MODERATE [facility] ([place]) Comment on above: Performed By: #### H H, GLU1P ####[address] [place], [place] [address] UA Nitrite Negative [facility] ([place]) Comment on above: Performed By: #### H H, GLU1P ####[address] [place], [place] [address] UA pH 8.0 [facility] ([place]) Comment on above: Performed By: #### H H, GLU1P ####[address] [place], [place] [address] UA Protein Negative [facility] ([place]) Comment on above: Performed By: #### H H, GLU1P ####[address] [place], [place] [address] UA Spec Grav 1.020 [facility] ([place]) Comment on above: Performed By: #### H H, GLU1P ####[address] [place], [place] [address] UA Specimen Type Clean Catch [facility] ([place]) Comment on above: Performed By: #### H H, GLU1P ####[address] [place], [place] [address] UA Urobilinogen 0.2 E.U./dL [facility] ([place]) Comment on above: Performed By: #### H H, GLU1P ####[address] [place], [place] [address] Urine, color YELLOW Normal [facility] ([place]) Comment on above: Performed By: #### H H, GLU1P ####[address] [place] [address] Urine, glucose Negative [facility] ([place]) Comment on above: Performed By: #### H H, GLU1P ####[address] [place], [place] [address] Urine, ketones presence Negative [facility] ([place] Comment on above: Performed By: #### H H, GLU1P ####[address] [place], [place] [address] Urine, urobilinogen Negative Normal [facility] ([place] Comment on above: Performed By: #### H H, GLU1P ####[address] [place], [place] [address] URICon 01-23-2017 Uric Acid Lvl 5.5 mcg/dL Normal 3.5-7.2 [facility] ([place]) Comment on above: Performed By: #### H H, GLU1P ####[address] [place], [place] [address] Depart Summaryon 01-01-2017 Depart Summary Normal [facility] ([place]) FFNon 01-01-2017 Fibronectin Negative Normal Negative [facility] ([place]) Comment on above: Performed By: #### F FN ####[address] [facility] [place] 01-[place]-2017 [facility] Normal [facility] ([place]) OB LIMITEDon 01-01-2017 OB LIMITED ORIGINAL - OBSTETRICS REPORT (Signed Final 01/01/2017 11:45 am) Patient Info ID #: [id number] : [birth year] (31 yrs)(F) Name: ROSY RICHARDSON Visit Date: 01/01/2017 11:39 am ---------Performed By Performed By: Angelica Hernandez RDKY Referred By: Camryn Fletcher MD Location: [facility] Nell e(s) Provided Obstetrical Follow-up Transvaginal--------- In dications threatened premature labor Evaluation Num Of Fetuses: 1 Heart Rate: 133 bpm Cardiac Activity: Observed Lie: Spine up Presentation: Breech, footling Placenta: Anterior, Grade 1 Amniotic Fluid OPAL FV: Appropriate for gestational age OPAL Sum: 18.59 cm Larg Pckt: 6.63 cm RUQ: 2.82 cm LUQ: 6.63 cm RLQ: 3.65 cm LLQ: 5.49 cm ---------Biometry BPD: 82.08 mm G. Age: 33w 0d OFD: 109.24 mm HC: 309.89 mm G. Age: 34w 4d 78 % AC: 299.93 mm G. Age: 34w 0d 91 % FL: 60.71 mm G. Age: 31w 4d 23 % CI: 75.1 % 70 - 86 FL/HC: 19.6 % 19.1 - 21.3 HC/AC: 1.03 0.96 - 1.17 FL/BPD: 74.0 % 71 - 87 FL/AC: 20.2 % 20 - 24 Est. FW: 2154 gm 4 lb 12 oz 45 % --------Gestational Age Clinical ANEUDY: 32w 6d ANEUDY: 02/20/17 U/S Today: 33w 2d ANEUDY: 02/17/17 Best: 32w 1d Det. By: U/S C R L ANEUDY: 02/25/17 (07/02/16) Cerv ix Uterus Adnexa Cervix: Measured transvaginally. wnl Impression Single live intrauterine gestation at 33 weeks and 2 days of age based on today's parameters. There has been adequate interval growth since 07/02/2016 study. Cervical length is appropriate. Minimal endocervical canal fluid seen. Thank you for sharing in the care of Ms. ROSY RICHARDSON with us. Please do not hesitate to contact us if you have any questions or concerns. Kwasi Lowry MDElectronically Signed Final Report 01/01/2017 11:45 am Normal [facility] ([place]) [place] Procedure Noteon [place] Procedure Note Normal [facility] ([place]) Progress Note-Nurseon 2016 Progress Note-Nurse Normal [facility]) Depart Summaryon 12-05-2016 Depart Summary Normal [facility] ([place]) [place] [facility] [place] 12-05-2016 [place] [facility] Normal [facility] ([place]) [id number] 10-26-2016 Glucose mass conc 106 mg/dL Normal 70-140 [facility] ([place]) Comment on above: Performed By: #### H H, GLU1P ####[address] [place], [place] [address] HHon 10-26-2016 Hematocrit (HCT) 33.6 % Low 37.0-47.0 [facility] ([place]) Comment on above: Performed By: #### H H, GLU1P ####[address] [place], [place] [address] Hemoglobin mass conc (Bld) 11.2 G/dL Low 12.0-16.0 [facility] ([place]) Comment on above: Performed By: #### H Celestine, GLU1P ####[address] [place], [place] [address] US > 14 WEEKSon US > 14 WEEKS ORIGINAL OBSTETRICS REPORT (Signed Final 09/24/2016 11:20 am) Patient Info ID #: [id number] : [birth year] (31 yrs)(F) Name: ROSY RICHARDSON Visit Date: 09/24/2016 09:17 am ---------Performed By Performed By: Angelica Hernandez [facility] Associate: Dr. Taty Smith Attending: Dr. Aly Duke Referred By: Camryn Fletcher MD Location: [facility]) Provided Obstetrical Ind ications DATING AND ANATOMY Evaluation Num Of Fetuses: 1 Preg. Location: Intrauterine Heart Rate: 133 bpm Cardiac Activity: Observed Lie: Spine up Presentation: Breech, footling Placenta: Anterior, Grade 1 Amniotic Fluid OPAL FV: Within Normal Limits OPAL Sum: 12.43 cm Larg Pckt: 3.96 cm RUQ: 2.74 cm LUQ: 2.14 cm RLQ: 3.59 cm LLQ: 3.96 cm ---------Biometry BPD: 38 mm G. Age: 17w 4d OFD: 55.04 mm HC: 151.03 mm G. Age: 18w 1d 50 % AC: 137.43 mm G. Age: 19w 1d 82 % FL: 26.61 mm G. Age: 18w 1d 49 % CI: 69.0 % 70 - 86 FL/HC: 17.6 % 15.8 - 18 HC/AC: 1.10 1.07 - 1.29 FL/BPD: 70.0 % FL/AC: 19.4 % 20 - 24 Est. FW: 247 gm 0 lb 9 oz ---------Gestational Age Clinical ANEUDY: 18w 5d ANEUDY: 02/20/17 U/S Today: 18w 2d ANEUDY: 02/23/17 Best: 18w 0d Det. By: U/S C R L ANEUDY: 02/25/17 (07/02/16) Mitzy michoacano Cranium: Normal appearance Ventricles: Normal appearance Choroid Plexus: Normal appearance Cerebellum: Normal appearance Posterior Fossa: Normal appearance Nuchal Fold: Normal appearance Face: Normal appearance Lips: Normal appearance Heart: Normal appearing 4 Chamber view RVOT: Normal appearance LVOT: Normal appearance Aortic Arch: Normal appearance Diaphragm: Normal appearance Stomach: Normal appearance Abdomen: Normal appearance Abdominal Wall: Normal appearance Cord Vessels: Not visualized Kidneys: Normal appearance Bladder: Normal appearance Spine: Normal appearance Lower Normal appearance Extremities: Upper Normal appearance Extremities:--------- Ta rgeted Anatomy Other Genitalia: Male Cervix Uterus Adnexa Cervical Length: 5.59 cm Cervix: Measured transabdominally Cul De Sac: No fluid seen Left Ovary: Not visualized due to gravid uterus Right Ovary: Not visualized due to gravid uterus Adnexa: Normal appearance Impr ession Single live intrauterine gestation of zafcqnamttarf24 weeks weeks based oncrown-rump length . Visualized anatomic structures as described above show no evidence of major anomalies; however, ultrasound imaging is inherently limited in exclusion of all anomalies. I have personally reviewed the images of this examination and agree with the resident's findings and interpretation.------ - Thank you for sharing in the care of Ms. ROSY RICHARDSON with us. Please do not hesitate to contact us if you have any questions or concerns. Aly Duke MDElectronically Signed Final Report 09/24/2016 11:20 am Normal [facility] Vital Signs Date Time Vital Sign Value Performing Clinician Facility 06-06-2024 16:28-0400 Body mass index (BMI) [Ratio] 34.38 kg/m2 [employer] Work Phone: [facility] 06-06-2024 16:28-0400 Body temperature 100.09 [degF] [employer] PA-C Work Phone: [facility] 06-06-2024 16:28-0400 Body weight 93 kg Blanca MaxxQbaka PA-C Work Phone: [facility] 06-06-2024 16:28-0400 Diastolic blood pressure 70 mm[Hg] [employer] PA-[employer] Work Phone: [facility] 03-25-2025 16:28-0400 Heart rate 111 /min Blanca Clutter PA-C Work Phone: [facility] 06-06-2024 16:28-0400 Respiratory rate 16 /min Blanca Clutter PA-C Work Phone: [facility] 06-06-2024 16:28-0400 SaO2% (BldA) [Mass fraction] 98 % Blanca Clutter PA-C Work Phone: [facility] 06-06-2024 16:28-0400 Systolic blood pressure 118 mm[Hg] Blanca Clutter PA-C Work Phone: [facility] 10-17-2023 12:34-0400 Body mass index (BMI) [Ratio] 32.87 kg/m2 Chriss Espinal WALLET ASSEMBLER[employer] Work Phone: [facility] 10-17-2023 12:34-0400 Body temperature 98.6 [degF] Chriss Espinal WALLET ASSEMBLER[employer] Work Phone: [facility] 10-17-2023 12:34-0400 Body weight 88.9 kg Chriss Espinal WALLET ASSEMBLER[employer] Work Phone: [facility] 10-17-2023 12:34-0400 Diastolic blood pressure 70 mm[Hg] Chriss Espinal WALLET ASSEMBLER[employer] IN[employer] Work Phone: [facility] 10-17-2023 12:34-0400 Heart rate 94 /min Chriss Espinal WALLET ASSEMBLER[employer] Work Phone: [facility] 10-17-2023 12:34-0400 Respiratory rate 16 /min Chriss Espinal WALLET ASSEMBLER.[employer] IN[employer] Work Phone: [facility] 10-17-2023 12:34-0400 SaO2% (BldA) [Mass fraction] 99 % Chriss Espinal WALLET ASSEMBLER[employer] IN[employer] Work Phone: [facility] 10-17-2023 12:34-0400 Systolic blood pressure 112 mm[Hg] Chriss Espinal WALLET ASSEMBLER[employer] Work Phone: [facility] 01-13-2023 14:03-0400 Body height 162.[address] Prince Garcia Work Phone: [facility] 01-13-2023 14:03-0400 Body mass index (BMI) [Ratio] 30.9 kg/m2 Dr. Prince Garcia Work Phone: [facility] 01-13-2023 14:03-0400 Body temperature 99.1 [degF] Dr. Prince Garcia Work Phone: [facility] 01-13-2023 14:03-0400 Body weight 81.[address] Prince Garcia Work Phone: [facility] 01-13-2023 14:03-0400 Diastolic blood pressure 72 mm[Hg] Dr. Prince Garcia Work Phone: [facility] 01-13-2023 14:03-0400 Heart rate 52 /min Dr. Prince Garcia Work Phone: [facility] 01-13-2023 14:03-0400 SaO2% (BldA) [Mass fraction] 99 % Dr. Prince Garcia Work Phone: [facility] 01-13-2023 14:03-0400 Systolic blood pressure 112 mm[Hg] Dr. Prince Garcia Work Phone: [facility] 12-22-2022 10:11-0400 Body temperature 98.29 [degF] Chriss Espinal APRN.[employer] INSTALLER Work Phone: [facility] 12-22-2022 10:11-0400 Body weight 81.65 kg Chriss Espinal APRN.[employer] IN[employer] Work Phone: [facility] 12-22-2022 10:11-0400 Diastolic blood pressure 78 mm[Hg] Chriss Espinal APRN.[employer] INSTALLER Work Phone: [facility] 12-22-2022 10:11-0400 Heart rate 77 /min Chriss Pendlebury WALLET ASSEMBLER.[employer] INSTALLER Work Phone: [facility] 12-22-2022 10:11-0400 Respiratory rate 18 /min Chriss Nileslebury WALLET ASSEMBLER.[employer] INSTALLER Work Phone: [facility] 12-22-2022 10:11-0400 SaO2% (BldA) [Mass fraction] 99 % Chriss Fabianbury WALLET ASSEMBLER.[employer] INSTALLER Work Phone: [facility] 12-22-2022 10:11-0400 Systolic blood pressure 110 mm[Hg] Chriss Pendlebury WALLET ASSEMBLER.[employer]ER INSTALLER Work Phone: [facility] 08-06-2021 13:56-0400 Body temperature 98.6 [degF] Dakotah Christian WALLET ASSEMBLER.[employer]ER INSTALLER Work Phone: [facility] 08-06-2021 13:56-0400 Body weight 81.19 kg Dakotah Christian WALLET ASSEMBLER.[employer] INSTALLER Work Phone: [facility] 08-06-2021 13:56-0400 Diastolic blood pressure 64 mm[Hg] Dakotah Christian WALLET ASSEMBLER.[employer] INSTALLER Work Phone: [facility] 08-06-2021 13:56-0400 Heart rate 74 /min Dakotah Christian WALLET ASSEMBLER.[employer] INSTALLER Work Phone: [facility] 08-06-2021 13:56-0400 Respiratory rate 18 /min Dakotah Christian WALLET ASSEMBLER.[employer] INSTALLER Work Phone: [facility] 08-06-2021 13:56-0400 SaO2% (BldA) [Mass fraction] 99 % Dakotah Christian WALLET ASSEMBLER.[employer] INSTALLER Work Phone: [facility] 08-06-2021 13:56-0400 Systolic blood pressure 100 mm[Hg] Dakotah Christian WALLET ASSEMBLER.[employer] INSTALLER Work Phone: [facility] Encounters Encounter Date Encounter Type Care Provider Facility Start: 06-06-2024 End: 06-06-2024 ambulatory PRINCE GARCIA Facility:[facility] Start: 06-06-2024 End: 06-06-2024 Office outpatient visit 25 minutes Blanca Boucher PA-C Work Phone: [facility] Comment on above: Sore throat (Primary Dx); Acute non-recurrent streptococcal tonsillitis Start: 02-23-2024 Encounter for genera l adult medical examination without abnormal findings Prince Garcia [facility] Start: 01-28-2024 End: 01-28-2024 ambulatory Prince Jefferssatishvadim Facility:[facility] Start: 01-28-2024 End: 01-28-2024 ambulatory Ellidazenia Deevadim Facility:[facility] Start: 10-17-2023 End: 10-17-2023 ambulatory [facility] Facility:[facility] Start: 10-17-2023 End: 10-17-2023 Office outpatient visit 25 minutes Chriss Espinal APRN.CNP Work Phone: [facility] Comment on above: Bacterial sinusitis (Primary Dx) Start: 08-31-2023 End: 08-31-2023 ambulatory [facility] Facility:[facility] Start: 08-19-2023 End: 08-19-2023 ambulatory [facility] Facility:[facility] Start: 08-04-2023 End: 08-04-2023 ambulatory Prince Garcia Facility:[facility] Start: 08-04-2023 End: 08-04-2023 ambulatory Km FRANK Facility:[facility] Start: 01-13-2023 End: 01-13-[address] Prince Garcia Work Phone: [facility] Work Phone: Start: 01-13-[address] Vadim Garcia Work Phone: [facility] Start: 01-13-2023 End: 01-13-2023 Encounter for general adult medical examination without abnormal findings Dr. Prince Garcia Work Phone: [facility] Start: 01-13-2023 End: 01-13-[address] Prince Garcia Work Phone: [facility] Work Phone: Start: 12-22-2022 End: 12-22-2022 Office outpatient visit 25 minutes Chriss Espinal APRN.CNP Work Phone: [facility] Comment on above: Acute otitis externa of right ear, unspecified type (Primary Dx); Acute otitis media, right Start: 08-06-2021 End: 08-06-2021 Patient encounter procedure Dakotah Gonzales APRN.CNP Work Phone: [facility] Comment on above: Sore throat (Primary Dx) Start: 02-18-2017 End: 02-20-2017 Evaluation and management of inpatient NONE PHYSICIAN Facility:B Start: 01-27-2017 End: 01-27-2017 Ambulatory NONE PHYSICIAN Facility:B Start: 01-23-2017 End: 01-23-2017 Ambulatory CAMRYN LAI Facility:B Start: 01-21-2017 End: 01-26-2017 Ambulatory [facility] Facility:[facility] Start: 01-01-2017 End: 01-06-2017 Ambulatory CAMRYN LAI Facility:[facility] Start: 01-01-2017 End: 01-02-2017 Ambulatory CAMRYN LAI Facility:[facility] Start: 12-05-2016 End: 12-05-2016 Ambulatory CAMRYN LAI Facility:[facility] Start: 10-26-2016 End: 10-27-2016 Ambulatory CAMRYN LAI Facility:[facility] Start: 09-24-2016 End: 09-25-2016 Ambulatory CAMRYN LAI Facility:[facility] Procedures Date Procedure Procedure Detail Performing Clinician Start: 06-06-2024 STREP A MOLECULAR (POC) Dakotah Gonzales APRN.CNP Work Phone: Start: 08-06-2021 STREP A MOLECULAR (POC) [facility] Provider Start: 06-13-2018 Adult depression screening assessment Dakotah Gonzales APRN.CNP Work Phone: Plan of Treatment Date Care Activity Detail Author Start: 02-21-2024 Urine microalbumin profile [facility] Start: 11-14-2023 Covid-19 Vaccine ( season) Covid-19 Vaccine ( season) [facility] Start: 11-14-2023 Influenza vaccination Influenza Vacc ine (#1) [facility] Start: 06-14-2023 HPV TESTING HPV TESTING [facility] Start: 06-14-2023 PAP TESTING PAP TESTING [facility] Start: 11-13-2022 Covid-19 Vaccine ( season) Covid-19 Vaccine ( season) [facility] Start: 11-13-2022 Influenza vaccination Influenza Vacc ine (#1) [facility] Start: 03-15-2022 Depression Assessment Depression Ass essment [facility] Start: 11-13-2021 Influenza vaccination INFLUENZ A (Season Ended) [facility] Start: 06-13-2021 Screening for malign ant neoplasm of cervix Cervical Cancer Screening [facility] Start: 01-14-2021 COVID-19 VACCINE (3 - Booster for Pfizer series) COVID-19 VACCINE (3 - Booster for Pfizer series) [facility] Start: 06-14-2019 Adult depression screening assessment DEPRESSION SCREENING [facility] Start: 08-15-2006 Hepatitis B Vaccine (1 of 3 - 19+ 3-dose series) Hepatitis B Vaccine (1 of 3 - 19+ 3-dose series) [facility] Start: 08-15-2005 Depression Screening Depression Scre ening [facility] Start: 1987 Hepatitis B Vaccine (1 of 3 - 3-dose series) Hepatitis B Vaccine (1 of 3 - 3-dose series) [facility] ALERE STREP A TEST (AG) ALERE ST REP A TEST (AG) Lab Routine Sore throat Ordered: 08/06/2021 [facility] Work Phone: Comment on above: Ordered: 08/06/2021 Immunizations Immunization Date Immunization Notes Care Provider Leonor irizarry 04-09-2014 measles, mumps and rubella virus vaccine Dakotah Gonzales APRN.CNP Work Phone: [facility] 04-08-2014 measles, mumps and rubella virus vaccine Dr. Prince Garcia Work Phone: [facility] 02-21-2014 influenza, injectabl e, quadrivalent, preservative free Dr. Prince Garcia Work Phone: [facility] 02-21-2014 tetanus toxoid, reduced diphtheria toxoid, and acellular pertussis vaccine, adsorbed Dr. Prince Garcia Work Phone: [facility] 02-21-2014 influenza virus vaccine, unspecified formulation Chriss Espinal WALLET ASSEMBLER.GAS METER INSTALLER Work Phone: [facility] 02-20-2014 tetanus toxoid, reduced diphtheria toxoid, and acellular pertussis vaccine, adsorbed Dakotah Christian WALLET ASSEMBLER.GAS METER INSTALLER Work Phone: [facility] 01-11-2014 influenza, seasonal, injectable Dakotah Christian WALLET ASSEMBLER.GAS METER INSTALLER Work Phone: [facility] 03-15-2013 tetanus toxoid, reduced diphtheria toxoid, and acellular pertussis vaccine, adsorbed Dakotah Christian WALLET ASSEMBLER.GAS METER INSTALLER Work Phone: [facility] Work Phone: Payers Date Payer Category Payer Blue [facility] BLUE CARD PPO OOS Member Subscriber Plan / Payer (Effective 2024-Present) Name: ROSY RICHARDSON Relation to Subscriber: Spouse Name: Km Richardson Date of : 1986 Address: [address] [place] [address] [place] [address] Payer ID: [id number] (NAIC) Type: PPO Address: [address] [place] [id number] 2024 Unknown [id number] 2023 Self-pay [id number] 2021 Private Health Insurance [facility] UMR CHOICE PLUS [id number] 2021-Present [phone] [address] [address] [place] [address] HMO [id number] 2021 Private Health Insurance [id number] 2016 Unknown [id number] 2013 Unknown [employer] [id number] Private Health Insurance [address] [id number] Private Health Insurance [facility] *DONOTUSE [id number] Unknown ANTHEM [id number] Unknown [id number] Unknown [id number] 62 Unknown [id number] 62 Unknown [id number] 62 Unknown [id number] 62 Unknown [id number] 62 Unknown [id number] Social History Date Type Detail Facility Start: 08-15-2013 End: 06-06-2024 Tobacco smoking status NHIS Ex-smoker [facility] Work Phone: Start: 02-14-2009 End: 02-14-2013 History of tobacco use Current smoker [facility] Work Phone: Start: 08-15-2013 End: 06-06-2024 Tobacco use and exposure Smokeless tobacco non-user [facility] Work Phone: Start: 08-06-2021 End: 06-06-2024 Alcohol intake Current drinker of alcohol (finding) [facility] Start: 06-13-2018 History SDOH Alcohol Comment Rarely [facility] Start: 1985 Sex Assigned At Not on file C [facility] Start: 02-14-2009 End: 02-14-2013 History of tobacco use Cigarette Smoker [facility] Start: 02-19-2020 End: 12-22-2022 History of Social function [facility] Start: 02-19-2020 End: 12-22-2022 Tobacco use panel [facility] Adult Depression Screening Assessment 0 [facility] Start: 01-13-2023 Tobacco smoking stat us ILIS Unknown if ever smoked [facility] Start: 1985 Sex Assigned At Female [facility] Functional Status Date Assessment Result Facility 05-18-2014 Are you deaf, or do you have serious difficulty hearing No 05/18/2014 3:06 PM Jayde Graham MA No [facility] 05-18-2014 Are you blind, or do you have serious difficulty seeing, even when wearing glasses No 05/18/2014 3:06 PM Jayde Graham MA No [facility] 05-18-2014 Do you have serious difficulty walking or climbing stairs No 05/18/2014 3:06 PM Jayde Graham MA No [facility] 05-18-2014 Do you have difficul ty dressing or bathing No 05/18/2014 3:06 PM Jayde Graham MA No [facility] 05-18-2014 Because of a physica l, mental, or emotional condition, do you have difficulty doing errands alone such as visiting a physician's office or shopping No 05/18/2014 3:06 PM Jayde Graham MA [facility] Mental Status Date Assessment Result Facility 05-18-2014 Because of a physica l, mental, or emotional condition, do you have serious difficulty concentrating, remembering, or making decisions No 05/18/2014 3:06 PM Jayde Graham MA No [facility] Clinical Notes 01-01-2017 to 06-06-2024 Blanca Boucher PA-C - 06/06/2024 4:40 PM Chriss Mercado APRN.GAS METER INSTALLER - 10/17/2023 12:42 PM Chriss Mercado APRN.GAS METER INSTALLER - 12/22/2022 10:18 AM EDT Note Date & Type Note Facility 06-06-2024 Note HNO ID: [id number] Author: BLANCA BOUCHER PA-C Service: ? Author Type: Physician [employer] Type: Progress Notes Filed: 06/06/2024 16:43 Note Text: This note was created using MirDeneg. Subjective Rosy Richardson is a 38 year old female. Patient is a 38-year-old female who complains of fever, chills and worsening sore throat that she has been experiencing for the past 2 days. Patient reports no congestion, sinus pressure, ear pain, cough or other illness symptoms. Patient states that she spent the day with her friend's children over the weekend and the following day they all tested positive for group A Streptococcus. Sore Throat Review of Systems Constitutional: Positive for chills and fever. HENT: Positive for sore throat. All other systems reviewed and are negative. Objective BP 118/70 Pulse 111 Temp 37.8 ?C (100.1 ?F) Resp 16 Wt 93 kg (205 lb 0.4 oz) LMP 05/15/2024 (Exact Date) SpO2 98% BMI 34.38 kg/m? Physical Exam Vitals and nursing note reviewed. Constitutional: Appearance: Normal appearance. She is normal weight. HENT: Head: Normocephalic and atraumatic. Right Ear: External ear normal. Left Ear: External ear normal. Nose: Nose normal. Mouth/Throat: Mouth: Mucous membranes are moist. Pharynx: Oropharyngeal exudate and posterior oropharyngeal erythema present. Eyes: Extraocular Movements: Extraocular movements intact. Conjunctiva/sclera: Conjunctivae normal. Pupils: Pupils are equal, round, and reactive to light. Cardiovascular: Rate and Rhythm: Normal rate and regular rhythm. Pulses: Normal pulses. Heart sounds: Normal heart sounds. Pulmonary: Effort: Pulmonary effort is normal. Breath sounds: Normal breath sounds. Musculoskeletal: Cervical back: Normal range of motion and neck supple. Skin: General: Skin is warm and dry. Capillary Refill: Capillary refill takes less than 2 seconds. Neurological: General: No focal deficit present. Mental Status: She is alert and oriented to person, place, and time. Psychiatric: Mood and Affect: Mood normal. Behavior: Behavior normal. Thought Content: Thought content normal. Judgment: Judgment normal. Assessment and Plan Physical exam findings as noted above. Rapid strep test is positive. Patient was provided with prescriptions for Augmentin 875-125 mg and prednisone 20 mg. Supportive care instructions were discussed and patient verbalizes excellent understanding of same. CLINICAL IMPRESSION: Acute Streptococcal Tonsillitis ASSESSMENT/PLAN: 1. Sore throat - ICD9: 462, ICD10: J02.9 (primary diagnosis) - STREP A MOLECULAR (POC) 2. Acute non-recurrent streptococcal tonsillitis - ICD9: 034.0, ICD10: J03.00 - AMOXICILLIN 875 MG-POTASSIUM CLAVULANATE 125 MG TABLET - PREDNISONE 20 MG TABLET MDM Amount and/or Complexity of Data Reviewed Clinical lab tests: ordered and reviewed Risk of Complications, Morbidity, and/or Mortality Presenting problems: low Diagnostic procedures: low Management options: brodie Boucher PA-C [facility] 06-06-2024 History of Present illness Narrative This note was created using MirDeneg. Subjective Rosy Richardson is a 38 year old female. Patient is a 38-year-old female who complains of fever, chills and worsening sore throat that she has been experiencing for the past 2 days. Patient reports no congestion, sinus pressure, ear pain, cough or other illness symptoms. Patient states that she spent the day with her friend's children over the weekend and the following day they all tested positive for group A Streptococcus. Sore Throat Review of Systems Constitutional: Positive for chills and fever. HENT: Positive for sore throat. All other systems reviewed and are negative. Objective BP 118/70 Pulse 111 Temp 37.8 C (100.1 F) Resp 16 Wt 93 kg (205 lb 0.4 oz) LMP 05/15/2024 (Exact Date) SpO2 98% BMI 34.38 kg/m Physical Exam Vitals and nursing note reviewed. Constitutional: Appearance: Normal appearance. She is normal weight. HENT: Head: Normocephalic and atraumatic. Right Ear: External ear normal. Left Ear: External ear normal. Nose: Nose normal. Mouth/Throat: Mouth: Mucous membranes are moist. Pharynx: Oropharyngeal exudate and posterior oropharyngeal erythema present. Eyes: Extraocular Movements: Extraocular movements intact. Conjunctiva/sclera: Conjunctivae normal. Pupils: Pupils are equal, round, and reactive to light. Cardiovascular: Rate and Rhythm: Normal rate and regular rhythm. Pulses: Normal pulses. Heart sounds: Normal heart sounds. Pulmonary: Effort: Pulmonary effort is normal. Breath sounds: Normal breath sounds. Musculoskeletal: Cervical back: Normal range of motion and neck supple. Skin: General: Skin is warm and dry. Capillary Refill: Capillary refill takes less than 2 seconds. Neurological: General: No focal deficit present. Mental Status: She is alert and oriented to person, place, and time. Psychiatric: Mood and Affect: Mood normal. Behavior: Behavior normal. Thought Content: Thought content normal. Judgment: Judgment normal. Assessment and Plan Physical exam findings as noted above. Rapid strep test is positive. Patient was provided with prescriptions for Augmentin 875-125 mg and prednisone 20 mg. Supportive care instructions were discussed and patient verbalizes excellent understanding of same. CLINICAL IMPRESSION: Acute Streptococcal Tonsillitis ASSESSMENT/PLAN: 1. Sore throat - ICD9: 462, ICD10: J02.9 (primary diagnosis) - STREP A MOLECULAR (POC) 2. Acute non-recurrent streptococcal tonsillitis - ICD9: 034.0, ICD10: J03.00 - AMOXICILLIN 875 MG-POTASSIUM CLAVULANATE 125 MG TABLET - PREDNISONE 20 MG TABLET MDM Amount and/or Complexity of Data Reviewed Clinical lab tests: ordered and reviewed Risk of Complications, Morbidity, and/or Mortality Presenting problems: low Diagnostic procedures: low Management options: low Blanca Boucher PA-C documented in this encounter [facility] 10-17-2023 Note HNO ID: [id number] Author: CHRISS ESPINAL APRN.GAS METER INSTALLER Service: ? Author Type: Nurse Practitioner Type: Progress Notes Filed: 10/17/2023 12:54 Note Text: Subjective HPI Nontoxic-appearing female presents urgent care chief complaint possible sinus infection. Patient states that sick 2 weeks ago. Diagnosed with COVID-19. States last week she developed sinus pressure. Has worsened in the last few days. No OTC medication use today. Has used OTC medications in the past this has not helped. Denies any fever body aches chills productive cough chest pain shortness of breath pleuritic pain hemoptysis nausea vomiting abdominal pain change in bowel or bladder habits. Past medical history prescription medication use and allergies reviewed. Denies chance of . Is not breast-feeding. 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 No date: Anxiety No date: Depression No date: Exercise-induced asthma Comment: SPORTS RELATED, no meds since teenager No date: Family history of ovarian cancer Comment: pt's mother should pursue BRCA testing No date: Headache No date: Heart murmur No date: History of kidney infection during No date: Irregular periods No date: Ovarian cyst PAST SURGICAL HISTORY No date: COLPOSCOPY CERVIX UPPER/ADJACENT VAGINA No date: EAR TUBES HX 2012: LEFT WRIST CARPAL TUNNEL ONLY; Left Comment: with removal of ganglion cyst ALLERGIES May, Hydrocodone-Acetaminophen, Macadamia Nut Oil, Nut - Unspecified, Paprika, Seasonal Allergies, Shellfish Derived, and Tree Nuts MEDICATIONS acetaminophen (TYLENOL) 325 mg tablet Take 650 mg by mouth every 6 hours as needed. traZODone (DESYREL) 100 mg tablet Take 100 mg by mouth once daily. (Patient not taking: Reported on 12/22/2022) busPIRone (BUSPAR) 15 mg tablet Take 15 mg by mouth twice daily. (Patient not taking: Reported on 12/22/2022) 04/03, 28, 1 mg-20 mcg (21)/75 mg (7) per tablet TAKE 1 TABLET BY MOUTH EVERY DAY (Patient not taking: Reported on 08/06/2021) fluconazole (DIFLUCAN) 150 mg tablet TAKE 1 TABLET BY MOUTH ONCE (Patient not taking: Reported on 08/06/2021) etonogestrel (NEXPLANON) subdermal implant 68 mg 68 mg by SUBDERMAL route. Placed 06/29/18 (Patient not taking: Reported on 12/22/2022) FAMILY HISTORY Problem Relation Age of Onset Cervical Cancer Mother 31 Ovarian cancer Mother 30 1 ovary removed Uterine Cancer Mother 31 Skin Cancer Mother BCC Arthritis Father Breast Cancer Maternal Grandmother 53 Skin Cancer Maternal Grandmother Melanoma Maternal Grandmother other (lymphoma) Maternal Grandmother Non-Hodgkins' Emphysema Maternal Grandfather Arthritis Paternal Grandmother Heart Paternal Grandmother Hyperlipidemia Paternal Grandmother Heart Paternal Grandfather Hyperlipidemia Paternal Grandfather Social History Tobacco Use Smoking status: Former Years: 4 Types: Cigarettes Quit date: 02/14/2013 Years since quittin.6 Smokeless tobacco: Never Substance Use Topics Alcohol use: Yes Comment: Rarely Drug use: No BP 112/70 Pulse 94 Temp 37 ?C (98.6 ?F) Resp 16 Wt 88.9 kg (195 lb 15.8 oz) LMP 06/24/2018 (Exact Date) SpO2 99% BMI 32.87 kg/m? Review of Systems Constitutional: Negative for chills, fever and malaise/fatigue. HENT: Positive for congestion and sinus pain. Negative for ear discharge, ear pain and sore throat. Eyes: Negative for blurred vision, pain, discharge and redness. Respiratory: Positive for cough and wheezing. Negative for hemoptysis, sputum production, shortness of breath and stridor. Cardiovascular: Negative for chest pain. Gastrointestinal: Negative for abdominal pain, diarrhea, nausea and vomiting. Musculoskeletal: Negative for myalgias. Skin: Negative for itching and rash. Neurological: Negative for dizziness and headaches. Objective Physical Exam Constitutional: General: She is not in acute distress. Appearance: She is not diaphoretic. HENT: Head: Normocephalic. Jaw: No trismus, tenderness, swelling or pain on movement. Right Ear: Tympanic membrane, ear canal and external ear normal. Left Ear: Tympanic membrane, ear canal and external ear normal. Nose: Congestion present. Mouth/Throat: Mouth: Mucous membranes are moist. Pharynx: Oropharynx is clear. Uvula midline. No pharyngeal swelling, oropharyngeal exudate, posterior oropharyngeal erythema or uvula swelling. Eyes: Conjunctiva/sclera: Conjunctivae normal. Pupils: Pupils are equal, round, and reactive to light. Cardiovascular: Rate and Rhythm: Normal rate and regular rhythm. Heart sounds: Normal heart sounds. Pulmonary: Effort: Pulmonary effort is normal. No tachypnea, accessory muscle usage or respiratory distress. Breath sounds: No strido (more content not included)... [facility] 10-17-2023 History of Present illness Narrative Subjective HPI Nontoxic-appearing female presents urgent care chief complaint possible sinus infection. Patient states that sick 2 weeks ago. Diagnosed with COVID-19. States last week she developed sinus pressure. Has worsened in the last few days. No OTC medication use today. Has used OTC medications in the past this has not helped. Denies any fever body aches chills productive cough chest pain shortness of breath pleuritic pain hemoptysis nausea vomiting abdominal pain change in bowel or bladder habits. Past medical history prescription medication use and allergies reviewed. Denies chance of . Is not breast-feeding. 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 No date: Anxiety No date: Depression No date: Exercise-induced asthma Comment: SPORTS RELATED, no meds since teenager No date: Family history of ovarian cancer Comment: pt's mother should pursue BRCA testing No date: Headache No date: Heart murmur No date: History of kidney infection during No date: Irregular periods No date: Ovarian cyst PAST SURGICAL HISTORY No date: COLPOSCOPY CERVIX UPPER/ADJACENT VAGINA No date: EAR TUBES HX 2012: LEFT WRIST CARPAL TUNNEL ONLY; Left Comment: with removal of ganglion cyst ALLERGIES May, Hydrocodone-Acetaminophen, Macadamia Nut Oil, Nut - Unspecified, Paprika, Seasonal Allergies, Shellfish Derived, and Tree Nuts MEDICATIONS acetaminophen (TYLENOL) 325 mg tablet Take 650 mg by mouth every 6 hours as needed. traZODone (DESYREL) 100 mg tablet Take 100 mg by mouth once daily. (Patient not taking: Reported on 12/22/2022) busPIRone (BUSPAR) 15 mg tablet Take 15 mg by mouth twice daily. (Patient not taking: Reported on 12/22/2022) 04/03, 28, 1 mg-20 mcg (21)/75 mg (7) per tablet TAKE 1 TABLET BY MOUTH EVERY DAY (Patient not taking: Reported on 08/06/2021) fluconazole (DIFLUCAN) 150 mg tablet TAKE 1 TABLET BY MOUTH ONCE (Patient not taking: Reported on 08/06/2021) etonogestrel (NEXPLANON) subdermal implant 68 mg 68 mg by SUBDERMAL route. Placed 06/29/18 (Patient not taking: Reported on 12/22/2022) FAMILY HISTORY Problem Relation Age of Onset Cervical Cancer Mother 31 Ovarian cancer Mother 30 1 ovary removed Uterine Cancer Mother 31 Skin Cancer Mother BCC Arthritis Father Breast Cancer Maternal Grandmother 53 Skin Cancer Maternal Grandmother Melanoma Maternal Grandmother other (lymphoma) Maternal Grandmother Non-Hodgkins' Emphysema Maternal Grandfather Arthritis Paternal Grandmother Heart Paternal Grandmother Hyperlipidemia Paternal Grandmother Heart Paternal Grandfather Hyperlipidemia Paternal Grandfather Social History Tobacco Use Smoking status: Former Years: 4 Types: Cigarettes Quit date: 02/14/2013 Years since quittin.6 Smokeless tobacco: Never Substance Use Topics Alcohol use: Yes Comment: Rarely Drug use: No BP 112/70 Pulse 94 Temp 37 C (98.6 F) Resp 16 Wt 88.9 kg (195 lb 15.8 oz) LMP 06/24/2018 (Exact Date) SpO2 99% BMI 32.87 kg/m Review of Systems Constitutional: Negative for chills, fever and malaise/fatigue. HENT: Positive for congestion and sinus pain. Negative for ear discharge, ear pain and sore throat. Eyes: Negative for blurred vision, pain, discharge and redness. Respiratory: Positive for cough and wheezing. Negative for hemoptysis, sputum production, shortness of breath and stridor. Cardiovascular: Negative for chest pain. Gastrointestinal: Negative for abdominal pain, diarrhea, nausea and vomiting. Musculoskeletal: Negative for myalgias. Skin: Negative for itching and rash. Neurological: Negative for dizziness and headaches. Objective Physical Exam Constitutional: General: She is not in acute distress. Appearance: She is not diaphoretic. HENT: Head: Normocephalic. Jaw: No trismus, tenderness, swelling or pain on movement. Right Ear: Tympanic membrane, ear canal and external ear normal. Left Ear: Tympanic membrane, ear canal and external ear normal. Nose: Congestion present. Mouth/Throat: Mouth: Mucous membranes are moist. Pharynx: Oropharynx is clear. Uvula midline. No pharyngeal swelling, oropharyngeal exudate, posterior oropharyngeal erythema or uvula swelling. Eyes: Conjunctiva/sclera: Conjunctivae normal. Pupils: Pupils are equal, round, and reactive to light. Cardiovascular: Rate and Rhythm: Normal rate and regular rhythm. Heart sounds: Normal heart sounds. Pulmonary: Effort: Pulmonary effort is normal. No tachypnea, accessory muscle usage or respiratory distress. Breath sounds: No stridor. Wheezing present. No rhonchi or rales. Abdominal: General: There is no distension. Palpations: Abdomen is soft. Tenderness: There is no abdominal tenderness. There is no guarding or rebound. Musculoskeletal: Cervical back: Normal range of motion and neck supple. No edema, erythema, rigidity or tenderness. No pain with movement. Normal range of motion. Lymphadenopathy: Cervical: No cervical adenopathy. Skin: General: Skin is warm and dry. Neurological: Mental Status: She is alert and oriented to person, place, and time. ASSESSMENT/PLAN: 1. Bacterial sinusitis - ICD9: 473.9, 041.9, ICD10: J32.9, B96.89 Diagnosed with bacterial sinusitis. Suspicious of secondary bacterial infection. Started on doxycycline prophylactic Diflucan sent to pharmacy as needed. Prednisone albuterol sent in for wheezing. Patient was educated on supportive therapies. Patient will follow up with primary care provider as needed. Patient was instructed to immediately proceed to emergency room for any new, worsening, or symptoms lasting longer than anticipated. The patient's clinical presentation is otherwise unremarkable at this time. Based on exam and clinical finding, the patient is stable for discharge. Plan of care was discussed with patient. Patient verbalizes understanding and agrees to plan of care. This note was generated using [employer] software. It may contain errors in wording, punctuation, or spelling. Chriss Espinal APRN.SHARAD documented in this encounter [facility] 12-22-2022 History of Present illness Narrative Subjective HPI Nontoxic-appearing female presents urgent care chief complaint right ear pain. Duration of symptoms 3 days. Associated symptoms right ear pain. Patient states pain is worsened over the last couple days. Diagnosed with otitis media placed on amoxicillin on Wednesday. Pain is worsened since. Has been using OTC pain medication and this is helped some. No known sick contacts. No ear trauma. Does have otorrhea. No loss of hearing. Hearing is muffled. Denies any fever body aches chills productive cough chest pain shortness of breath pleuritic pain hemoptysis nausea vomiting abdominal pain change in bowel or bladder habits. Past medical history prescription medication use and allergies reviewed. .Patient presents with: Ear Pain: Right ear pain x 3 days PAST MEDICAL HISTORY Diagnosis Date Abnormal Pap smear of cervix Anemia A TEENAGER Anxiety Depression Exercise-induced asthma SPORTS RELATED, no meds since teenager Family history of ovarian cancer pt's mother should pursue BRCA testing Headache Heart murmur History of kidney infection during Irregular periods Ovarian cyst PAST SURGICAL HISTORY Procedure Laterality Date COLPOSCOPY CERVIX UPPER/ADJACENT VAGINA EAR TUBES HX LEFT WRIST CARPAL TUNNEL ONLY Left 2011 with removal of ganglion cyst ALLERGIES May, Hydrocodone-Acetaminophen, Macadamia Nut Oil, Nut - Unspecified, Paprika, Seasonal Allergies, Shellfish Derived, and Tree Nuts MEDICATIONS acetaminophen (TYLENOL) 325 mg tablet Take 650 mg by mouth every 6 hours as needed. traZODone (DESYREL) 100 mg tablet Take 100 mg by mouth once daily. (Patient not taking: Reported on 12/22/2022) busPIRone (BUSPAR) 15 mg tablet Take 15 mg by mouth twice daily. (Patient not taking: Reported on 12/22/2022) 04/03, 28, 1 mg-20 mcg (21)/75 mg (7) per tablet TAKE 1 TABLET BY MOUTH EVERY DAY (Patient not taking: Reported on 08/06/2021) fluconazole (DIFLUCAN) 150 mg tablet TAKE 1 TABLET BY MOUTH ONCE (Patient not taking: Reported on 08/06/2021) etonogestrel (NEXPLANON) subdermal implant 68 mg 68 mg by SUBDERMAL route. Placed 06/29/18 (Patient not taking: Reported on 12/22/2022) FAMILY HISTORY Problem Relation Age of Onset Cervical Cancer Mother 31 Ovarian cancer Mother 30 1 ovary removed Uterine Cancer Mother 31 Skin Cancer Mother BCC Arthritis Father Breast Cancer Maternal Grandmother 53 Skin Cancer Maternal Grandmother Melanoma Maternal Grandmother other (lymphoma) Maternal Grandmother Non-Hodgkins' Emphysema Maternal Grandfather Arthritis Paternal Grandmother Heart Paternal Grandmother Hyperlipidemia Paternal Grandmother Heart Paternal Grandfather Hyperlipidemia Paternal Grandfather Social History Tobacco Use Smoking status: Former Years: 4 Types: Cigarettes Quit date: 02/14/2013 Years since quittin.8 Smokeless tobacco: Never Substance Use Topics Alcohol use: Yes Comment: Rarely Drug use: No BP 110/78 Pulse 77 Temp 36.8 C (98.3 F) (Tympanic) Resp 18 Wt 81.6 kg (180 lb) LMP 06/24/2018 (Exact Date) SpO2 99% BMI 30.19 kg/m Review of Systems Constitutional: Negative for chills, fever and malaise/fatigue. HENT: Positive for ear discharge and ear pain. Negative for congestion, sinus pain and sore throat. Eyes: Negative for blurred vision, pain, discharge and redness. Respiratory: Negative for cough, hemoptysis, sputum production, shortness of breath, wheezing and stridor. Cardiovascular: Negative for chest pain. Gastrointestinal: Negative for abdominal pain, diarrhea, nausea and vomiting. Musculoskeletal: Negative for myalgias. Skin: Negative for itching and rash. Neurological: Negative for dizziness and headaches. Objective Physical Exam Constitutional: General: She is not in acute distress. Appearance: She is not diaphoretic. HENT: Head: Normocephalic. Jaw: No trismus, tenderness, swelling or pain on movement. Right Ear: Decreased hearing noted. Drainage, swelling and tenderness present. No mastoid tenderness. Tympanic membrane is erythematous and bulging. Left Ear: Tympanic membrane, ear canal and external ear normal. Ears: Comments: No pre or postauricular adenopathy. No evidence of perichondritis or mastoiditis. No external erythema edema noted. Tragal tenderness. Mouth/Throat: Mouth: Mucous membranes are moist. Pharynx: Oropharynx is clear. Uvula midline. No pharyngeal swelling, oropharyngeal exudate, posterior oropharyngeal erythema or uvula swelling. Eyes: Conjunctiva/sclera: Conjunctivae normal. Pupils: Pupils are equal, round, and reactive to light. Cardiovascular: Rate and Rhythm: Normal rate and regular rhythm. Heart sounds: Normal heart sounds. Pulmonary: Effort: Pulmonary effort is normal. No tachypnea, accessory muscle usage or respiratory distress. Breath sounds: Normal breath sounds. No stridor. No wheezing, rhonchi or rales. Abdominal: General: There is no distension. Palpations: Abdomen is soft. Tenderness: There is no abdominal tenderness. There is no guarding or rebound. Musculoskeletal: Cervical back: Normal range of motion and neck supple. No edema, erythema, rigidity or tenderness. No pain with movement. Normal range of motion. Lymphadenopathy: Cervical: No cervical adenopathy. Skin: General: Skin is warm and dry. Neurological: Mental Status: She is alert and oriented to person, place, and time. ASSESSMENT/PLAN: 1. Acute otitis externa of right ear, unspecified type - ICD9: 380.10, ICD10: H60.501 (primary diagnosis) 2. Acute otitis media, right - ICD9: 382.9, ICD10: H66.91 Discontinue amoxicillin. Placed on Augmentin. Placed on ofloxacin otic drops. Treat as external and internal otitis media. Follow-up with ENT if symptoms not improving next 48 hours. Red flags proper elevation discussed. Patient was educated on supportive therapies. Patient will follow up with primary care provider as needed. Patient was instructed to immediately proceed to emergency room for any new, worsening, or symptoms lasting longer than anticipated. The patient's clinical presentation is otherwise unremarkable at this time. Based on exam and clinical finding, the patient is stable for discharge. Plan of care was discussed with patient. Patient verbalizes understanding and agrees to plan of care. This note was generated using [employer] software. It may contain errors in wording, punctuation, or spelling. Chriss Espinal APRN.SHARAD documented in this encounter [facility] 08-06-2021 History of Present illness Narrative Subjective HPI HPI Rosy Richardson is a 35 year old female who presents today for CC of st, fever. This started 1 day ago. Has tried nothing for relief. Symptoms are worsened by nothing. Risk factors no known sick exposures. Denies cough, ear pain. Denies possibility of being . .Patient presents with: Sore Throat: ST and lw grade fever x 1 day PAST MEDICAL HISTORY Diagnosis Date Abnormal Pap smear of cervix Anemia A TEENAGER Anxiety Depression Exercise-induced asthma SPORTS RELATED, no meds since teenager Family history of ovarian cancer pt's mother should pursue BRCA testing Headache Heart murmur History of kidney infection during Irregular periods Ovarian cyst PAST SURGICAL HISTORY Procedure Laterality Date COLPOSCOPY CERVIX UPPER/ADJACENT VAGINA EAR TUBES HX LEFT WRIST CARPAL TUNNEL ONLY Left 2011 with removal of ganglion cyst ALLERGIES May, Hydrocodone-Acetaminophen, Macadamia Nut Oil, Nut - Unspecified, Paprika, Seasonal Allergies, Shellfish Derived, and Tree Nuts MEDICATIONS traZODone (DESYREL) 100 mg tablet Take 100 mg by mouth once daily. busPIRone (BUSPAR) 15 mg tablet Take 15 mg by mouth twice daily. etonogestrel (NEXPLANON) subdermal implant 68 mg 68 mg by SUBDERMAL route. Placed 06/29/18 acetaminophen (TYLENOL) 325 mg tablet Take 650 mg by mouth every 6 hours as needed. 04/03, , 1 mg-20 mcg (21)/75 mg (7) per tablet TAKE 1 TABLET BY MOUTH EVERY DAY fluconazole (DIFLUCAN) 150 mg tablet TAKE 1 TABLET BY MOUTH ONCE FAMILY HISTORY Problem Relation Age of Onset Cervical Cancer Mother 31 Ovarian cancer Mother 30 1 ovary removed Uterine Cancer Mother 31 Skin Cancer Mother BCC Arthritis Father Breast Cancer Maternal Grandmother 53 Skin Cancer Maternal Grandmother Melanoma Maternal Grandmother other (lymphoma) Maternal Grandmother Non-Hodgkins' Emphysema Maternal Grandfather Arthritis Paternal Grandmother Heart Paternal Grandmother Hyperlipidemia Paternal Grandmother Heart Paternal Grandfather Hyperlipidemia Paternal Grandfather Social History Tobacco Use Smoking status: Former Smoker Years: 4.00 Quit date: 02/14/2013 Years since quittin.4 Smokeless tobacco: Never Used Substance Use Topics Alcohol use: Yes Comment: Rarely Drug use: No Review of Systems Constitutional: Positive for fever. HENT: Positive for sore throat. Negative for congestion, ear pain and nosebleeds. Respiratory: Negative for cough, shortness of breath and wheezing. Musculoskeletal: Negative for neck pain. Objective Blood pressure 100/64, pulse 74, temperature 37 C (98.6 F), temperature source Tympanic, resp. rate 18, weight 81.2 kg (179 lb), last menstrual period 06/24/2018, SpO2 99 %. Physical Exam Constitutional: General: She is not in acute distress. Appearance: She is not toxic-appearing or diaphoretic. HENT: Head: Normocephalic and atraumatic. Nose: Nose normal. Mouth/Throat: Lips: [place]. Mouth: Mucous membranes are moist. Pharynx: Uvula midline. Posterior oropharyngeal erythema present. No oropharyngeal exudate or uvula swelling. Tonsils: Tonsillar exudate present. 2+ on the right. 2+ on the left. Eyes: General: Lids are normal. No scleral icterus. Right eye: No discharge. Left eye: No discharge. Conjunctiva/sclera: Conjunctivae normal. Pupils: Pupils are equal, round, and reactive to light. Neck: Trachea: Trachea normal. Cardiovascular: Rate and Rhythm: Normal rate and regular rhythm. Heart sounds: Normal heart sounds. Pulmonary: Effort: Pulmonary effort is normal. Breath sounds: Normal breath sounds. Abdominal: Palpations: Abdomen is soft. There is no hepatomegaly or splenomegaly. Tenderness: There is no abdominal tenderness. Musculoskeletal: Cervical back: Normal range of motion and neck supple. Lymphadenopathy: Cervical: No cervical adenopathy. Right cervical: No superficial cervical adenopathy. Left cervical: No superficial cervical adenopathy. Skin: Findings: No rash. Neurological: Mental Status: She is alert and oriented to person, place, and time. ASSESSMENT/PLAN: 1. Sore throat - ICD9: 462, ICD10: J02.9 - suspect viral, possibly mono - Alere Strep Test neg, no culture pending/return for testing 7-10 days if still occurring . - Discussed supportive care treatment with fluids, rest and analgesia. - The patient should follow up in 3-5 days if symptoms persist or worsen - Call back if drooling, increased temperature, symptoms of dehydration and/or still sick in one week - ALERE STREP A TEST (AG) - PREDNISONE 10 MG TABLET Agrees to plan Dakotah Gonzales APRN.CNP documented in this encounter [facility] 01-01-2017 History of Past i llness Narrative Problem Noted Date Resolved Date labor without delivery, unspecified trim mimi 01/01/2017 06/13/2018 Supervision of other normal 12/20/2013 06/13/2018 Overview: Girl on us- analiese History of asthma 08/15/2013 01/11/2014 Overview: 08/15/2013She has a history of sports-induced asthma. She denies any asthma attacks since age 18. TKRN Family history of defects 08/15/2013 01/11/2014 Overview: 08/15/2013Patient's maternal grandfather and 2 first cousins born with a hole in their heart. 's great aunt born with Down syndrome.TKRN documented as of this encounter (statuses as of 08/06/2021) [facility] History of Past illness Narrative* Problem Noted Date Diagnosed Date Resolved Date labor without delive ry, unspecified trimester 01/01/2017 06/13/2018 Supervision of other normal 12/20/2013 06/13/2018 Overview: Girl on us- analiese History of asthma 08/15/2013 01/11/2014 Overview: 08/15/2013She has a history of sports-induced asthma. She denies any asthma attacks since age 18. TKRN Family history of defects 08/15/2013 01/11/2014 Overview: 08/15/2013Patient's maternal grandfather and 2 first cousins born with a hole in their heart. 's great aunt born with Down syndrome.TKRN documented as of this encounter (statuses as of 12/22/2022) [facility] S[facility]- Primary [facility] Acute otitis externa of right ear, unspecified type- Primary Acute otitis media, right Unspecified otitis media [facility] Diagnosis Onset Date Resolution Status Preventative health care acu te Anxiety and depression chron [facility] Work Phone: Evaluation note* Diagnosis Bacterial sinusitis- Primary Unspecified sinusitis (chronic) [facility] Diagnosis Sore throat- Primary Acute pharyngitis Acute non-recurrent streptococcal tonsillitis documented in this encounter [facility] Summary Purpose Family History No Family History Records Found Relationship Condition Age at Onset Recorded Date/T elein father Complication of anesthesia Unknown brother Anxiety Unknown mother Malignant neoplasm of cervix Unknown Malignant neoplasm Unknown Malignant melanoma Unknown Malignant neoplasm of ovary Unknown grandmother Malignant neoplasm Unknown Cardiac disease Unknown grandfather High blood cholesterol Unknown Advance Directives No Advanced Directives Records Found Advance Directive Response Recorded Date/ Time Living Will No August 19, 2013 1 1:43am 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 No August 19, 2013 11:43am Chief Complaint and Reason for Visit Chief Complaint physical Reason for Visit Preventative health care Anxiety and depression Additional Source Comments INFORMATION SOURCE (unrecogn ized section and content) DATE CREATED AUTHOR 09/07/2017 [facility] ([place]) DATE CREATED AUTHOR AUTHOR'S ORGANIZ ATION 09/08/2017 [facility] DATE CREATED AUTHOR AUTHOR'S ORGANIZ ATION 02/26/2024 [facility] DATE CREATED AUTHOR AUTHOR'S ORGANIZ ATION 06/07/2024 [facility] Source Comments (unrecognize d section and content) In the event this informatio n is protected by the Federal Confidentiality of Alcohol and Drug Abuse Patient Records regulations: The Federal rules restrict any use of the information to criminally investigate or prosecute any alcohol or drug abuse patient.[facility] the event this information is protected by the Federal Confidentiality of Alcohol and Drug Abuse Patient Records regulations: The Federal rules restrict any use of the information to criminally investigate or prosecute any alcohol or drug abuse patient.[facility] the event this information is protected by the Federal Confidentiality of Alcohol and Drug Abuse Patient Records regulations: The Federal rules restrict any use of the information to criminally investigate or prosecute any alcohol or drug abuse patient.[facility] the event this information is protected by the Federal Confidentiality of Alcohol and Drug Abuse Patient Records regulations: The Federal rules restrict any use of the information to criminally investigate or prosecute any alcohol or drug abuse patient.[facility] Reason for Visit (unrecogniz ed section and content) Reason Comments Sore Throat ST and lw grade feve r x 1 day Reason Comments Ear Pain Right ear pain x 3 d ays Reason Comments Sinus Problem no smell or taste x 5 days, at home + covid 12 days ago, cough x + covid Reason Comments Sore Throat Care Teams (unrecognized sec tion and content) Relief Pilot Relationship Specialty Start Date End Date Kaley Navarro, [address] [place] [address] PCP - General Family Practice 06/13/18 Relief Pilot Relationship Specialty Start Date End Date Prince Garcia MD [address] [place], [place] [id number] PCP - General Internal Medicine 12/22/22 Team Status: Active Member Role Status Dates Dr. Prince Garcia MD Primary Care Provider Active Team Status: Inactive Member Role Status Dates Dr. Prince Garcia MD Primary Care P teresita, Attending Provider, Referring Provider Active Team Status: Inactive Member Role Status Dates Dr. Prince Garcia MD Primary Care Provider, Atten ding Provider Active Relief Pilot Relationship Specialty Start Date End Date Prince Garcia MD [address] [place], [place] [id number] PCP - General Internal Medicine 12/22/22 Relief Pilot Relationship Specialty Start Date End Date Prince Garcia MD [address] [place] [place], [place] [id number] PCP - General Internal Medicine 12/22/22 Goals (unrecognized section and content) Goals may be documented in a n alternate section FOR RECORDS PERTAINING TO PATIENTS WHO ARE OR HAVE BEEN ENROLLED IN A CHEMICAL DEPENDENCY/SUBSTANCEABUSE PROGRAM, SOME INFORMATION MAY BE OMITTED. This clinical summary was aggregated from multiple sources. Caution should be exercised in using it in the provision of clinical care. This summary normalizes information from multiple sources, and as a consequence, information in this document may materially change the coding, format and clinical context of patient data. In addition, data may be omitted in some cases. CLINICAL DECISIONS SHOULD BE BASED ON THE PRIMARY CLINICAL RECORDS. [employer] provides no warranty or guarantee of the accuracy or completeness of information in this document.
--- NOTE | 2024-11-04 21:33 | EDS_ITS ---
HPI History of Present Illness Chief Complaint: Upper Extremity Injury [facility] Medical History (Updated 01/31/24 @ 17:[address] Guerline Garcia MD) Hyperlipidemia Vitamin D deficiency Screening for thyroid disorder Obesity (BMI 30-39.9) Preventative health care history of child PTSD (post-traumatic stress disorder) Anxiety ulcers GERD (gastroesophageal reflux disease) Hx of migraine headaches Carpal tunnel syndrome Anemia Seasonal allergies Medical History no medical history Home Medications ?Medication ?Instructions ?Recorded ?Last Taken ?Type trazodone 100 mg tablet 100 mg PO DAILY PRN insomnia #90 05/29/24 Unknown Rx tabs Allergy/AdvReac Type Severity Reaction Status Date / Time paprika Allergy Severe Anaphylaxis Verified 11/04/24 20:13 shellfish derived Allergy Severe Anaphylaxis Verified 11/04/24 20:13 Pedro AdvReac Other Verified 11/04/24 20:13 Family History Daughter No problems noted. Father Anesthesia complication Brother Anxiety Mother Cervical cancer Cancer Melanoma Ovarian cancer Grandmother Cancer Heart disease Melanoma Grandfather High cholesterol Surgical History History of carpal tunnel release Social History Smoking Status: Current some day smoker tobacco type: e-cigarettes alcohol intake: current alcohol intake frequency: holidays/special occasions only Alcohol type: beer and wine substance use type: does not use what type of physical activity do you participate in: walking and yoga frequency: 1-2 times per week EXAM Physical Exam Const Vital Signs: 11/04/24 20:14 Temperature 98.7 F Temperature Source Temporal Pulse Rate 123 H Respiratory Rate 18 Blood Pressure 122/83 H Blood Pressure Mean 96 Pulse Ox 97 MDM MDM MDM Narrative Medical decision making narrative: HISTORY OF PRESENT ILLNESS: Chief complaint: Right shoulder pain 39-year-old female history of hyperlipidemia, obesity, GERD presents after mechanical fall. No she is walking her dog dog pulled her she fell forward to the right shoulder. No head trauma loss of conscious. No neck, back, chest or abdominal pain noted. Denies numbness tingling loss sensation right upper extremity. No she is left-hand dominant. REVIEW OF SYSTEMS: Pertinent positives: Right shoulder pain Pertinent negatives: Head trauma, LOC PHYSICAL EXAM: Nursing triage notes reviewed, Vital signs reviewed Constitutional: please see [facility] HEENT: Atraumatic Neck: No stridor, no JVD, full neck ROM, no step-offs deformities or TTP to the neck. Lungs: Clear to auscultation, No wheezing or rales. No increased work of breathing, no conversational dyspnea, no accessory muscle use, no nasal flaring. No respiratory distress noted Heart: Regular rate and rhythm, No murmurs, No rubs and No gallops, 2+ distal pulses (radial, femoral, posterior tibial) in all extremities Abdomen: Soft, there is no tenderness, rigidity, rebound or guarding, no obvious peritoneal signs, no palpable pulsatile abdominal masses, no auscultated abdominal bruit : No CVAT Extremities: No edema, TTP over proximal humerus. No TTP over clavicle. Neuro: Intact 5/5 strength with ok sign (median), intact finger abduction (ulnar) intact wrist extension (radial n). Intact sensation in the radial, ulnar, and median nerve distributions. Skin: No rash or lesions noted, no sign of open fracture MEDICAL DECISION MAKING: Chief Complaint: please see [facility] External records reviewed: Reviewed prior imaging studies Factors affecting care: As per [facility] Social determinants of health: none History obtained from others: mother Consults: Orthopedics (Dr. Smith) [facility] Narrative: Patient was initially tachycardic otherwise hemodynamically stable, afebrile and nontoxic-appearing. the patient's right upper extremity was neurovascularly intact. I considered the following differential diagnosis: Shoulder fracture, dislocation, clavicle fracture X-ray was obtained per protocol orders in triage. ALL IMAGES (IF OBTAINED) HAVE BEEN PERSONALLY REVIEWED AND INTERPRETED BY MYSELF. X-ray of the clavicle and shoulder read reviewed personally myself showed evidence of a proximal humeral fracture. Discussed the case with the orthopedic surgeon on-call who recommended sling and outpatient follow-up. The patient and/or family, caregivers express understanding. The patient and/or family, caregivers agrees with the plan. Shared decision making: I will have a discussion with the patient and or visitors regarding risk/benefits of further testing or admission. They will be made aware of of the risk/benefits inherent in this decision they will be given the opportunity to voice understanding. Total critical care time today provided was at least 0 minutes. This excludes separately billable procedures. Critical care time (if documented) is secondary to the patient having high probability of clinically significant/life threatening deterioration in the patient's condition which required my urgent intervention. Impression: 1. Acute shoulder pain 2. Proximal humeral fracture Dispo: Discharge home This note was generated with [employer] dictation software. It may contain incorrect words, spelling, and punctuation that were not noted in review of the chart prior to signing. Radiography Diagnostic Testing: Clinical Impression(s) from Imaging Studies Clavicle X-Ray 11/04/24 20:16 IMPRESSION: Intact clavicle. Nondisplaced vertical fracture through the right humeral head and neck Reading Location: [facility] Shoulder X-Ray 11/04/24 20:40 IMPRESSION: Nondisplaced vertical fracture involving the right humeral head and neck Reading Location: [facility] Discharge Plan Triage Chief Complaint: Upper Extremity Injury ED Provider: Ruben Ta Dx/Rx/DC Orders Prescriptions: No Action trazodone 100 mg tablet 100 mg PO DAILY PRN (Reason: insomnia) Qty: 90 1RF Primary Care Provider: Guerline aGrcia Referrals: Guerline Garcia MD [Primary Care Provider] - Print Language: Persian
[2024-11-04 21:46] VITALS: BP 121/69; PULSE 67; RESP 16; TEMP 36.7; O2SAT 98
== END 2024-11-04 22:17 | disposition home or self-care (01) ==
PROVIDERS: Emergency Provider Emergency Medicine; PCP Internal Medicine; Visit Provider Emergency Medicine
DX: S42.201A Unspecified fracture of upper end of right humerus, initial encounter for closed fracture (principal); W18.30XA Fall on same level, unspecified, initial encounter; Y93.K1 Activity, walking an animal; E78.5 Hyperlipidemia, unspecified; E66.9 Obesity, unspecified; K21.9 Gastro-esophageal reflux disease without esophagitis; F17.290 Nicotine dependence, other tobacco product, uncomplicated; Z79.899 Other long term (current) drug therapy
CPT/HCPCS: 73000; 73030; 99284